=== PATIENT | female | born 1975 | race Caucasian/White ===

== ENCOUNTER 2016-08-12 16:22 | Outpatient (CLI) | payer MEDICAID | END 2016-08-12 16:23 | disposition home or self-care (01) | DX: N95.1 Menopausal and female climacteric states (principal) ==

== ENCOUNTER 2016-09-20 21:19 | Emergency (ER) | payer MEDICAID ==
[2016-09-20] MEDS ORDERED: valACYclovir 500 MG TABLET PO STA (22:58)
[2016-09-20] MEDS ORDERED: IBUPROFEN 600 MG TABLET PO STA (22:59)
[2016-09-20] MEDS ORDERED: valACYclovir 500 MG TABLET PO ONE (23:14)
[2016-09-20] MEDS ORDERED: IBUPROFEN 600 MG TABLET PO ONE (23:14)
== END 2016-09-20 23:16 | disposition home or self-care (01) ==
DX: R21 Rash and other nonspecific skin eruption (principal)
CPT/HCPCS: 99283; A9270

== ENCOUNTER 2017-03-30 13:24 | Outpatient (CLI) | payer MEDICAID ==
[2017-03-30 13:39] LABS: BASOPHILS % (AUTO) 0.7 %; EOSINOPHILS # (AUTO) 0.3 10^3/uL (0.0-0.7); EOSINOPHILS % (AUTO) 3.7 %; HCT - HEMATOCRIT 39.6 % (37.0-47.0); HGB - HEMOGLOBIN 13.5 g/dL (12.0-16.0); LYMPHOCYTES # (AUTO) 2.4 10^3/uL (1.5-3.5); LYMPHOCYTES % (AUTO) 32.4 %; MEAN CORPUSCULAR HEMOGLOBIN 30.6 pg (27.0-31.0); MEAN CORPUSCULAR VOLUME 89.9 fL (81.0-99.0); MEAN PLATELET VOLUME 8.5 fL (7.9-10.8); MONOCYTES # (AUTO) 0.7 10^3/uL (0.0-1.0); NEUTROPHILS # (AUTO) 3.9 10^3/uL (1.5-6.6); NEUTROPHILS % (AUTO) 53.2 %; RED CELL DISTRIBUTION WIDTH 12.2 % (12.0-15.0); UNCORRECTED WHITE BLOOD COUNT 7.3 x10^3/uL; WHITE BLOOD COUNT 7.3 x10^3/uL (4.8-10.8)
== END 2017-03-30 13:25 | disposition home or self-care (01) ==
LOC: LAB 13:24
PROVIDERS: ATTEND Nurse Practitioner Family
DX: K57.32 Diverticulitis of large intestine without perforation or abscess without bleeding (principal)
CPT/HCPCS: 36415; 85025

== ENCOUNTER 2017-11-22 06:15 | Day surgery (SDC) | payer OTHER ==
[2017-11-22] MEDS ORDERED: ceFAZolin 2 GM/50 ML 2 GM/50 ML BAG IV ONE (06:48)
[2017-11-22] MEDS ORDERED: SCOPOLAMINE PATCH TOP ONE (06:48)
[2017-11-22 06:56] LABS: HCG UR QUAL NEGATIVE
[2017-11-22 06:58] VITALS: BP 118/80
[2017-11-22] MEDS ORDERED: LACTATED RINGERS 1,000 ML IV ONE ×5 (07:09→18:00)
[2017-11-22 07:17] LABS: BASOPHILS % (AUTO) 0.6 %; EOSINOPHILS # (AUTO) 0.2 10^3/uL (0.0-0.7); EOSINOPHILS % (AUTO) 3.3 %; HGB - HEMOGLOBIN 12.6 g/dL (12.0-16.0); LYMPHOCYTES # (AUTO) 2.9 10^3/uL (1.5-3.5); LYMPHOCYTES % (AUTO) 42.3 %; MEAN CORPUSCULAR HGB CONC 34.2 g/dL (32.0-36.0); MEAN CORPUSCULAR VOLUME 90.8 fL (81.0-99.0); MEAN PLATELET VOLUME 8.6 fL (7.9-10.8); MONOCYTES # (AUTO) 0.6 10^3/uL (0.0-1.0); MONOCYTES % (AUTO) 8.5 %; NEUTROPHILS # (AUTO) 3.1 10^3/uL (1.5-6.6); NEUTROPHILS % (AUTO) 45.3 %; PLT - PLATELET COUNT 221 10^3/uL (130-450); RED BLOOD COUNT 4.05 10^6/uL (4.20-5.40); RED CELL DISTRIBUTION WIDTH 11.8 % (12.0-15.0); WHITE BLOOD COUNT 6.9 x10^3/uL (4.8-10.8)
[2017-11-22] MEDS ORDERED: BACITRACIN OINT TOP ONE ×2 (07:30→07:56)
[2017-11-22] MEDS ORDERED: BUPIVACAINE 0.25%-EPI 1:200000 PF 30 ML VIAL ONE (07:30)
[2017-11-22] MEDS ORDERED: MINERAL OIL/PETROLAT OPHTH OINT ONE (07:30)
[2017-11-22] MEDS ORDERED: EPINEPHrine 1 MG/ML AMP ONE (07:30)
[2017-11-22] MEDS ORDERED: CHLORHEXIDINE GLUCONATE 15 ML UDC PO ONE (07:34)
[2017-11-22] MEDS ORDERED: OXYMETAZOLINE NASAL SPRAY NAS ONE (07:34)
[2017-11-22] MEDS ORDERED: BACITRACIN 50,000 UNIT VIAL ONE ×2 (07:36→07:41)
[2017-11-22] MEDS ORDERED: SODIUM CHLORIDE 0.9% 10 ML ONE (07:46)
[2017-11-22] MEDS ORDERED: BACITRACIN 50,000 UNIT VIAL IM ONE (09:10)
[2017-11-22] MEDS ORDERED: BUPIVACAINE 0.5%-EPI 1:200000 PF 30 ML VIAL SUBQ ONE ×2 (09:10→16:59)
[2017-11-22] MEDS ORDERED: BUPIVACAINE 0.25%-EPI 1:200000 PF 30 ML VIAL SUBQ ONE (09:10)
[2017-11-22] MEDS ORDERED: BACITRACIN ZINC OINT 15 GM TOP ONE (09:10)
[2017-11-22] MEDS ORDERED: EPINEPHrine 1 MG/ML AMP IVP ONE (09:10)
[2017-11-22] MEDS ORDERED: ONDANSETRON 4 MG/2 ML VIAL IVP ONE (09:30)
[2017-11-22] MEDS ORDERED: LIDOCAINE-MPF 2% 5 ML VIAL IM ONE (09:30)
[2017-11-22] MEDS ORDERED: fentaNYL 250 MCG/5 ML VIAL IVP ONE (09:30)
[2017-11-22] MEDS ORDERED: ESMOLOL 100 MG/10 ML VIAL IVP ONE (09:30)
[2017-11-22] MEDS ORDERED: SODIUM CHLORIDE 0.9% 10 ML VIAL IV ONE (09:30)
[2017-11-22] MEDS ORDERED: SUCCINYLCHOLINE 200 MG/10 ML VIAL IVP ONE (09:30)
[2017-11-22] MEDS ORDERED: MIDAZOLAM 2 MG/2 ML VIAL IVP ONE (09:30)
[2017-11-22] MEDS ORDERED: DEXAMETHASONE 4 MG/ML VIAL IVP ONE (09:30)
[2017-11-22] MEDS ORDERED: ACETAMINOPHEN 1,000 MG/100 ML 100 ML IV ONE (09:30)
[2017-11-22] MEDS ORDERED: LABETALOL 5 MG/1 ML 20 ML MDV IV ONE ×2 (09:30)
[2017-11-22] MEDS ORDERED: PROPOFOL 200 MG/20 ML VIAL IVP ONE (09:30)
[2017-11-22] MEDS ORDERED: BUPIVACAINE 0.5%-EPI 1:200000 PF 30 ML VIAL ONE (12:35)
[2017-11-22] MEDS: HYDROmorphone 1 MG/ML CARPUJECT ONE ×3 (17:32→18:17)
[2017-11-22] MEDS ORDERED: KETOROLAC 30 MG/ML VIAL ONE (18:17)
[2017-11-22] MEDS: fentaNYL 100 MCG/2 ML VIAL ONE ×3 (18:45→19:10)
[2017-11-22] MEDS: HYDROmorphone 0.5 MG/0.5 ML SYRINGE IVP PRN ×3 (20:50→23:46)
[2017-11-22] MEDS ORDERED: clonazePAM 0.5 MG TABLET PO PRN (21:21)
[2017-11-22] MEDS ORDERED: CARBOXYMETHYLCELLULOSE OPHTH DROPS EACHEYE PRN (21:25)
[2017-11-22] MEDS: LACTATED RINGERS 1,000 ML IV SCH (21:55)
[2017-11-22] MEDS ORDERED: AMITRIPTYLINE 10 MG TABLET PO SCH (22:00)
[2017-11-22] MEDS ORDERED: GABAPENTIN 300 MG CAPSULE PO SCH (22:00)
[2017-11-22] MEDS ORDERED: SODIUM CHLORIDE FLUSH 0.9% 10 ML SYRINGE ONE (22:02)
[2017-11-22] MEDS: oxyCOD/ACETAMIN 5 MG/325 MG TABLET PO PRN (22:10)
[2017-11-22] MEDS: CHLORHEXIDINE GLUCONATE 15 ML UDC PO SCH (22:10)
[2017-11-22] MEDS: ONDANSETRON 4 MG/2 ML VIAL IVP PRN (22:10)
[2017-11-22] MEDS ORDERED: LORazepam 2 MG/ML VIAL IVP SCH (22:30)
[2017-11-22] MEDS ORDERED: LORazepam 2 MG/ML VIAL ONE (22:48)
[2017-11-22] MEDS: KETOROLAC 30 MG/ML VIAL IVP PRN (23:46)
[2017-11-23] MEDS: HYDROmorphone 0.5 MG/0.5 ML SYRINGE IVP PRN ×4 (01:04→09:13)
[2017-11-23] MEDS: oxyCOD/ACETAMIN 5 MG/325 MG TABLET PO PRN ×3 (03:48→13:00)
[2017-11-23] MEDS: KETOROLAC 30 MG/ML VIAL IVP PRN ×2 (06:07→11:05)
[2017-11-23] MEDS: buPROPion XL 150 MG TABLET PO SCH ×2 (08:09→09:12)
[2017-11-23] MEDS: CETIRIZINE 10 MG TABLET PO SCH ×2 (08:10→09:12)
[2017-11-23] MEDS: CHLORHEXIDINE GLUCONATE 15 ML UDC PO SCH (08:11)
[2017-11-23] MEDS: LACTATED RINGERS 1,000 ML IV SCH (09:31)
[2017-11-23] MEDS ORDERED: IBUPROFEN 400 MG TABLET PO PRN (10:25)
[2017-11-23] MEDS ORDERED: DEXAMETHASONE 10 MG/ML VIAL IVP SCH (11:00)
[2017-11-23] MEDS ORDERED: AMOX/CLAV 875 MG/125 MG TABLET PO SCH (11:00)
[2017-11-23] MEDS ORDERED: LORazepam 2 MG/ML VIAL IVP SCH (11:00)
[2017-11-23] MEDS: ONDANSETRON 4 MG/2 ML VIAL IVP PRN ×2 (11:05→15:48)
[2017-11-23] MEDS ORDERED: SODIUM CHLORIDE FLUSH 0.9% 10 ML SYRINGE ONE (11:13)
[2017-11-23] MEDS ORDERED: ONDANSETRON ODT 4 MG TABLET TL PRN (14:42)
[2017-11-23] MEDS ORDERED: DOCUSATE SODIUM 100 MG CAPSULE PO SCH (15:00)
[2017-11-23] MEDS: SACCHAROMYCES BOULARDII 250 MG CAPSULE PO SCH ×2 (15:44→15:50)
[2017-11-23] MEDS: HYDROmorphone 2 MG TABLET PO PRN ×2 (15:45→19:03)
[2017-11-23] MEDS ORDERED: LORazepam 0.5 MG TABLET PO PRN (17:00)
--- NOTE | 2017-11-23 17:33 | OPERATIVE REPORT ---
DATE OF SERVICE: 11/22/2017 Physician: Teja Aldrich DDS PREOPERATIVE DIAGNOSIS: 1. Bilateral temporomandibular joint internal derangement with severe bony architecture changes on the right side. 2. Osteoarthritis of the bilateral temporomandibular joints, ICD-10 code M26.69. 3. 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 4. Arthralgia of the bilateral temporomandibular joints, ICD-10 code M26.623. 5. 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 6. Open bite on the left, ICD-10 code M26.64. This diagnosis is secondary to osteoarthritis of the right temporomandibular joint. 7. History of trauma to the mandible. PROCEDURE: 1. Left temporomandibular joint diskectomy via preauricular incision. 2. Right temporomandibular joint total joint arthroplasty with prosthetic joint replacement. 3. Fat graft from the abdomen to the bilateral temporomandibular joints. POSTOPERATIVE DIAGNOSIS: 1. Bilateral temporomandibular joint internal derangement with severe bony architecture changes on the right side. 2. Osteoarthritis of the bilateral temporomandibular joints, ICD-10 code M26.69. 3. 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 4. Arthralgia of the bilateral temporomandibular joints, ICD-10 code M26.623. 5. 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 6. Open bite on the left, ICD-10 code M26.64. This diagnosis is secondary to osteoarthritis of the right temporomandibular joint. 7. History of trauma to the mandible. SURGEON: Teja Aldrich DDS ASSISTANTS: Theresa Del Rio, Sabine Mcintosh, and Peri Davis. ANESTHESIA: Johnson Nicholson CRNA. IMPLANTS: All implants were Biomet implants. 1. Small right mandibular fossa. 2. A 50 mm standard right mandibular condylar implant. 3. The X-drive fossa screws, 2.0 x 9 mm x1 and 2.0 x 11 mm x4. 4. The HT X-drive mandibular screws, 2.7 x 8 mm x3 and 2.7 x 10 mm x2. COMPLICATIONS: None. ESTIMATED BLOOD LOSS: 600 mL. URINE OUTPUT: 900 mL. SPECIMENS REMOVED: None. DRAINS, PACKS, CATHETERS: None. INDICATIONS FOR PROCEDURE: Nellie is a 42-year-old female who has a history of multiple conservative treatment and for pain of the bilateral temporomandibular joint. She noted that in the last 6 months she began to have shifting of her bite and the pain actually went away on the right hand side and became severe on the left. She also noticed decrease in mobility in the right temporomandibular joint and the shifting bite had caused an open bite on the left with occasional severe pain on the right. Radiographic and clinical examination consistent with severe vertical height loss secondary to osteoarthritis of the right temporomandibular joint. It was decided that total joint arthroplasty of the right temporomandibular joint with a Biomet prosthetic implant was indicated with discectomy on the left. The risks, benefits and alternatives of this plan were discussed including pain, swelling, bleeding, infection, scarring, paralysis of the muscles of the face, numbness of the lips, chin or tongue, severe bleeding with need for transfusion and/or prolonged hospitalization need for further surgeries, failure of the hardware, malocclusion and ectopic bone formation. Adequate time was given to answer all questions and informed consent obtained. DESCRIPTION OF PROCEDURE: The patient was brought to the main operating room and placed in the supine position on the operating table. General anesthesia was induced by the anesthesia team and the airway was secured with a nasal endotracheal tube. The tube was secured to the septum with a transseptal suture. All pressure points were padded and checked. The patient was prepped and draped in standard sterile fashion for bilateral open joint temporomandibular joint surgery. It should be noted, however, that prior to the formal prep and drape, we began with the fat graft harvest from the abdomen. A formal timeout was executed. Attention was directed to the abdomen. The abdomen was prepped and draped in standard fashion for harvest of fat via small incision. Local anesthesia was achieved with 3 mL of 0.25% Marcaine with 1:200,000 epinephrine. At 4 cm to the right of the umbilicus a 2.5 cm incision was made with a #10 blade. Sharp dissection down through the skin into the Camper's fascia was completed. Once entering the Camper's fascia, about 10 mL of fat were harvested, placed in a specimen container and saline. The site was then irrigated. Hemostasis was assured. The deep layers were closed with 4-0 Vicryl suture and the superficial layers were closed with 5-0 Prolene suture. The wound was dressed. At this point, attention was directed intraorally. A throat pack was placed. The patient's mouth was cleansed and rinsed free of debris. A 24-gauge wire was fashioned to the Marcella loops and 8 Marcella loops were placed 4 the mandible and 4 in the maxilla in order to be able to place the patient into intermaxillary fixation as needed later in the case. The patient was then prepped and draped in the standard sterile fashion for arthroplasty of the bilateral temporomandibular joint. Attention was first directed to the left temporomandibular joint. This was done because the diskectomy would undoubtedly change the patient's occlusal relationship and so this was decided to be carried out first prior to the prosthetic placement. Epinephrine 1:50,000 was used for hemostasis, 3 mL were injected. A standard preauricular incision was drawn and made with a #15 blade. Dissection in a blunt fashion was carried out down to the temporomandibular joint capsule the whole time the nerve stimulator was used. At no time was any stimulation of the frontal branch of the facial nerve appreciated and there was a significant amount of blood vessels right in the field. All bleeding was managed with hand ties and with bipolar cautery. Once the capsule was encountered, an incision was made through the capsule. The capsule and its contents were very inflamed and bled significantly making the surgery progress slowly because of the need to continually stop and control bleeding. Inside the capsule, no recognizable disk was found. The mandible was manipulated and a significant amount of inflamed bleeding, retrodiscal tissue was found and removed and also a significant amount of scar tissue was removed from the normal location of the disk. Once this tissue was removed, the site was irrigated copiously. The deep layers were closed with 4-0 Vicryl suture and the superficial layers were closed with 5-0 Prolene suture. Attention was then directed to the right preauricular area. A right submandibular incision and a right preauricular incision were drawn and then carried out with a #15 blade. First, the right submandibular incision was performed. The dissection was performed sharply down to the platysma and then at the platysma blunt dissection began, testing with a nerve stimulator along the way. Surprisingly, the marginal mandibular branch of the facial nerve was found to be swooping very inferiorly below the inferior border of the mandible. The unusual position made the dissection difficult, but the marginal mandibular branch could easily be identified by visual inspection and by location with the nerve stimulator and it was safely retracted out of the way. The dissection was carried out down through the submandibular salivary gland safely reflecting the facial artery and vein out of the way and not sacrificing the vessel. The pterygomasseteric sling was encountered and it was sharply bisected. The masseter was then reflected off of the lateral surface of the mandible and the site was packed with Afrin-soaked cottonoids. Attention was turned to the preauricular incision. The incision was made with a #15 blade. Sharp and blunt dissection was used at the superior aspect of the incision down to the temporalis muscle. The plane in the temporalis muscle was then followed down to the zygomatic arch. The periosteum of the arch was identified. It was stimulated with a nerve stimulator and again in this location, no movement of the eyebrow was noted. The dissection continued down to the capsule. A moderate amount of bleeding was noted, but the bleeding again as on the other side was controlled with bipolar and with hand ties. The capsule was entered and the condylar head and the fossa were identified. The condylar head was found to be extremely shortened by the osteoarthritis. In fact, it was so short and that the coronoid notch was almost articulating with the eminence of the fossa. Because of this, not a whole lot of condylar head had to be resected, but the scarred and disease portion of the condylar head that did remain was resected as well as a bright white piece of tissue that was anterior to the head. This could have been the disk or it could have been some calcified scar tissue or a piece of bone from the previous fracture. It was difficult to tell. Once all the scar tissue was removed from the fossa and the condylar head and the bleeding was controlled, also it should be noted that Surgifoam was used in this location to control bleeding as well. A reciprocating rasp was used to smooth down the bony surface of the mandible and also to smooth down the surface of the fossa and the eminence to make it parallel to the [place] horizontal plane. A trial fossa was then placed into the site and good clearance of the mandible from this fossa was noted. A permanent fossa implant was then placed and held in place with two screws. The patient was then placed into intermaxillary fixation with care being taken not to contaminate the field of the right temporomandibular joint. Scrub was then broken and I rescrubbed back in to continue on with the surgery of the right temporomandibular joint. The condylar trial portion was then used. Because of the nice medial location of the mandible, a brief attempt at placing an offset trial portion was used; however, this was found to ride on the lateral aspect of the fossa and it was deemed not as good as just the standard angulation of the condyle. The 50 mm was decided upon and it was held in place with two screws. Now that all the implantable components were rigidly in place, again, the patient's intermaxillary fixation was released and her occlusion was noted to be very stable and repeatable. This is very good and again scrub was broken and I once again rescrubbed and then I came back into the case. Fixation was completed of the fossa end of the condylar component as described above in the components implanted. Once all implants were completed, the entire surgical area was irrigated with copious amounts of sterile saline that was mixed with bacitracin. Fat graft was then placed around the implant to prevent heterotopic ossification. I forgot to mention previously, but it should also be noted that a fat graft was also placed into the left temporomandibular joint after the diskectomy was completed. Once the fat graft was completed on the right, the deep layers were closed with 4-0 Vicryl suture, taking care to make a multiple layered closure and the superficial layers were closed with 5-0 Prolene suture. The patient's face was cleansed. The throat pack was removed. The intermaxillary fixation was released. The septal suture was removed. The eyes were rinsed with BSS. Care of the patient was returned to the anesthesia team for uneventful emergence room anesthesia. She was transferred to the PACU in stable condition. TD: 11/23/2017 13:16
== END 2017-11-23 19:32 | disposition home or self-care (01) ==
LOC: SDS 06:15 → MS2 17:05 → SDS 11-23 19:32
PROVIDERS: ATTEND Dentist Oral and Maxillofacial Surgery
PROC: 0RRC0JZ Replacement of Right Temporomandibular Joint with Synthetic Substitute, Open Approach (ICD-10-PCS; 2017-11-22)
PROC: 0JB80ZZ Excision of Abdomen Subcutaneous Tissue and Fascia, Open Approach (ICD-10-PCS; 2017-11-22)
PROC: 0RB Upper Joints, Excision (ICD-10-PCS; principal; 2017-11-22 07:30)
DX: M26.69 Other specified disorders of temporomandibular joint (principal); M26.611 Adhesions and ankylosis of right temporomandibular joint; M26.633 Articular disc disorder of bilateral temporomandibular joint; M26.623 Arthralgia of bilateral temporomandibular joint; M26.4 Malocclusion, unspecified; G47.63 Sleep related bruxism; J45.909 Unspecified asthma, uncomplicated; F32.9 Major depressive disorder, single episode, unspecified; F41.9 Anxiety disorder, unspecified
CPT/HCPCS: 20926; 21060; 21243; 81025; 85025; A9270; C1713; J0131; J0330; J0690; J1170; J2060; J3010; J3490; J7120

== ENCOUNTER 2018-04-20 18:17 | Outpatient (CLI) | payer OTHER ==
--- NOTE | 2018-04-23 09:26 | Ultrasound Report ---
Reason: BONE SOFT TISSUE SKIN NEOPLASM UNSPEC BEHAVIOR Procedure Date: 04/20/2018 Accession Number: [id number] / [id number] Procedure: US - Head or Neck Soft Tissue CPT Code: FULL RESULT: EXAM: ULTRASOUND CHEST LIMITED EXAM DATE: 04/20/2018 06:59 PM. CLINICAL HISTORY: BONE SOFT TISSUE SKIN NEOPLASM UNSPEC BEHAVIOR. COMPARISON: None. TECHNIQUE: Real-time sonographic imaging was performed by the metal furniture panel coverer utilizing color-flow. Multiple sales donor recruitment representative static images were saved for review. Region of interest: Left back in the region of the clinical finding. FINDINGS: There is an apparent 4.2 x 3.7 x 0.9 cm mass-like region at the left mid back with echogenicity similar to surrounding musculature. IMPRESSION: There is an apparent 4.2 x 3.7 x 0.9 cm mass-like region at the left mid back with echogenicity similar to surrounding musculature, indeterminate. MR could be considered for further evaluation. RADIA
== END 2018-04-20 18:18 | disposition home or self-care (01) ==
LOC: DI 18:17
PROVIDERS: ATTEND Family Medicine
DX: D49.2 Neoplasm of unspecified behavior of bone, soft tissue, and skin (principal); R22.2 Localized swelling, mass and lump, trunk
CPT/HCPCS: 76536

== ENCOUNTER 2018-05-17 17:45 | Outpatient (CLI) | payer OTHER ==
--- NOTE | 2018-05-18 18:18 | MRI Report ---
Reason: BONE SOFT TISSUE AND SKIN NEOPLASM UNSPEC BEHAVIOR Procedure Date: 05/17/2018 Accession Number: [id number] / [id number] Procedure: MRI - Thoracic Spine W/O CPT Code: FULL RESULT: EXAM: MRI THORACIC SPINE WITHOUT CONTRAST EXAM DATE: 05/17/2018 07:00 PM. CLINICAL HISTORY: Bones/soft tissue/skin neoplasm of uncertain behavior. COMPARISONS: Ultrasound 04/20/2018. TECHNIQUE: Multiplanar, multisequence T1-weighted and fluid-sensitive sequences of the thoracic spine from C7 to L1 without contrast. Other: None. FINDINGS: Spinal Canal: No signal abnormality in the visualized spinal cord. Alignment: No scoliosis or spondylolisthesis. Bone Marrow: No gross fractures or bone lesion. No bone marrow replacement. Disk Levels/Facets: C7-T1: Unremarkable. T1-T2: Unremarkable. T2-T3: Unremarkable. T3-T4: Unremarkable. T4-T5: Unremarkable. T5-T6: Unremarkable. T6-T7: Unremarkable. T7-T8: Unremarkable. T8-T9: Unremarkable. T9-T10: Unremarkable. T10-T11: Unremarkable. T11-T12: Unremarkable. T12-L1: Unremarkable. Musculature: Normal. No edema or fatty atrophy. Other: The visualized lungs, mediastinum, and abdominal cavity are unremarkable. Within the subcutaneous tissues of the upper thoracic region centrally, there is an oval-shaped structure within the subcutaneous tissues midline that measures 1.8 x 3.3 x 5.9 cm. This has signal intensity of fat on all sequences and is consistent with a benign lipoma. IMPRESSION: 5.9 cm benign subcutaneous lipoma posterior to the central upper thoracic spine. RADIA
== END 2018-05-17 17:46 | disposition home or self-care (01) ==
LOC: DI 17:45
PROVIDERS: ATTEND Family Medicine
DX: D17.1 Benign lipomatous neoplasm of skin and subcutaneous tissue of trunk (principal)
CPT/HCPCS: 72146

== ENCOUNTER 2018-08-06 10:50 | Outpatient (CLI) | payer OTHER ==
[2018-08-06 19:00] LABS: BASOPHILS % (AUTO) 0.4 %; EOSINOPHILS # (AUTO) 0.2 10^3/uL (0.0-0.7); HGB - HEMOGLOBIN 13.2 g/dL (12.0-16.0); LYMPHOCYTES % (AUTO) 27.9 %; MEAN CORPUSCULAR HEMOGLOBIN 30.4 pg (27.0-31.0); MEAN CORPUSCULAR HGB CONC 33.5 g/dL (32.0-36.0); MEAN CORPUSCULAR VOLUME 90.8 fL (81.0-99.0); MONOCYTES # (AUTO) 0.7 10^3/uL (0.0-1.0); MONOCYTES % (AUTO) 6.8 %; NEUTROPHILS # (AUTO) 6.8 10^3/uL (1.5-6.6); NEUTROPHILS % (AUTO) 62.9 %; PLT - PLATELET COUNT 249 10^3/uL (130-450); RED BLOOD COUNT 4.34 10^6/uL (4.20-5.40); RED CELL DISTRIBUTION WIDTH 12.8 % (12.0-15.0); WHITE BLOOD COUNT 10.9 x10^3/uL (4.8-10.8)
[2018-08-06 19:23] LABS: ALBUMIN 3.3 g/dL (3.2-5.5); ALBUMIN/GLOBULIN RATIO 1.1 (1.0-2.2); ALKALINE PHOSPHATASE 65 IU/L (42-121); ALT ALANINE AMINOTRANSFERASE 19 IU/L (10-60); AST ASPARTATE AMINOTRANSFERASE 25 IU/L (10-42); BILIRUBIN,TOTAL 0.5 mg/dL (0.2-1.0); BUN - BLOOD UREA NITROGEN 13 mg/dL (6-20); CALCIUM 8.7 mg/dL (8.5-10.3); CARBON DIOXIDE - CO2 23 mmol/L (21-32); CHLORIDE 108 mmol/L (101-111); CREATININE 0.8 mg/dL (0.4-1.0); GFR - MDRD 79 (>89); GLUCOSE 84 mg/dL (70-100); SODIUM 139 mmol/L (135-145); TOTAL PROTEIN 6.4 g/dL (6.7-8.2)
== END 2018-08-06 10:51 | disposition home or self-care (01) ==
LOC: LAB.WCP 10:50
PROVIDERS: ATTEND Nurse Practitioner
DX: Z13.228 Encounter for screening for other metabolic disorders (principal); R53.83 Other fatigue
CPT/HCPCS: 36415; 80050

== ENCOUNTER 2018-10-20 11:59 | Emergency (ER) | payer OTHER ==
[2018-10-20] MEDS ORDERED: predniSONE 20 MG TABLET PO STA (12:27)
[2018-10-20] MEDS ORDERED: IPRATROPIUM/ALBUTEROL 3 ML NEB INH STA (12:27)
--- NOTE | 2018-10-20 12:30 | ED Physician Documentation ---
PD HPI DYSPNEA - Stated complaint Stated Complaint: SOA,COUGH - Chief complaint Chief Complaint: Resp - History obtained from History obtained from: Patient, Family - History of Present Illness Timing - onset: Other (3-year-old woman with mild intermittent asthma. She is been sick for about 2 weeks with cough. It got better after starting steroids and doxycycline 6 days ago. She still on the doxycycline, but the steroids have been stopped and got worse again last night with more shortness of breath especially at night and increased use of her rescue inhaler. She denies fevers. No recent travel or pedal edema or calf pain.) Review of Systems Constitutional: denies: Fever, Chills Cardiac: denies: Chest pain / pressure, Palpitations Respiratory: denies: Dyspnea, Cough GI: denies: Abdominal Pain PD PAST MEDICAL HISTORY - Past Medical History Past Medical History: Yes Cardiovascular: None Respiratory: Asthma GI: Ulcerative colitis AIRCRAFT ENGINEER: Endometriosis : None HEENT: Chronic vision loss Psych: Depression, Anxiety Musculoskeletal: None - Past Surgical History Past Surgical History: Yes General: Colonoscopy /AIRCRAFT ENGINEER: Endometrial ablation, Oophrectomy, Other HEENT: Other - Present Medications Home Medications: Ambulatory Orders Medication Instructions Recorded Confirmed Cetirizine HCl [Zyrtec] 10 mg PO DAILY PRN 03/16/16 11/21/17 clonazePAM [KlonoPIN] 0.5 mg PO BID PRN 03/16/16 11/22/17 Albuterol Sulfate [Proair Hfa 1 - 2 puffs INH Q4H PRN 11/21/17 11/22/17 Inhaler] Amitriptyline [Elavil] 10 mg PO HS 11/21/17 11/22/17 Bupropion HCl [Wellbutrin Xl] 300 mg PO DAILY 11/21/17 11/21/17 Gabapentin 300 mg PO DAILY PM 11/21/17 11/22/17 Sulfasalazine [Azulfidine] 500 mg PO BID 11/21/17 11/22/17 Albuterol Sulf [Ventolin Hfa 1 - 2 puffs INH Q4HR PRN #1 inhaler 10/20/18 Inhaler] predniSONE [Deltasone] 20 mg PO [id number] #21 tab 10/20/18 - Allergies Allergies/Adverse Reactions: Allergies Allergy/AdvReac Type Severity Reaction Status Date / Time No Known Drug Allergies Allergy Verified 11/22/17 07:06 - Social History Does the pt smoke?: No Smoking Status: Never smoker Does the pt drink ETOH?: No Does the pt have substance abuse?: No - Immunizations Immunizations are current?: Yes - POLST Patient has POLST: No PD ED PE NORMAL - Vitals Vital signs reviewed: Yes - General General: Alert and oriented X 3, No acute distress - Neck Neck: Supple, no meningeal sign, No bony TTP - Cardiac Cardiac: RRR, No murmur - Respiratory Respiratory: No respiratory distress, Clear bilaterally, Other (Excellent air motion with only faint expiratory wheezing) - Abdomen Abdomen: Non tender - Derm Derm: No rash - Extremities Extremities: No edema, No calf tenderness / cord Results - Vitals Vitals: Vital Signs - 24 hr 10/20/18 12:07 Temperature 36.6 C Heart Rate 86 Respiratory 16 Rate Blood Pressure 130/80 O2 Saturation 97 Oxygen O2 Source Room air Departure - Departure Disposition: 01 Home, Self Care Clinical Impression: Asthma Qualifiers: Asthma severity: mild Asthma persistence: intermittent Asthma complication type: with acute exacerbation Qualified Code(s): J45.21 - Mild intermittent asthma with (acute) exacerbation Condition: Good Record reviewed to determine appropriate education?: Yes Instructions: Asthma Dc Prescriptions: Albuterol Sulf [Ventolin Hfa Inhaler] 1 - 2 puffs INH Q4HR PRN #1 inhaler PRN Reason: Shortness Of Air/Wheezing predniSONE [Deltasone] 20 mg PO [id number] #21 tab Comments: Return for new or worsening symptoms, follow-up with your doctor in about 3 days if not improving.
[2018-10-20 12:55] VITALS: BP 122/76
== END 2018-10-20 12:55 | disposition home or self-care (01) ==
LOC: ED 11:59
DX: J45.21 Mild intermittent asthma with (acute) exacerbation (principal)
CPT/HCPCS: 94640; 94664; 99283; J7512

== ENCOUNTER 2018-11-14 16:40 | Emergency (ER) | payer OTHER ==
--- NOTE | 2018-11-14 17:51 | ED Physician Documentation ---
PD HPI SKIN - Stated complaint Stated Complaint: RT LEG WOUND/OOZE - Chief complaint Chief Complaint: General - History obtained from History obtained from: Patient - History of Present Illness Timing - onset: How many days ago (2-3) Timing - duration: Days (2-3) Timing - details: Gradual onset Location: RLE (anterolateral lower leg.) Quality / character: Itchy, Painful, Vesicular (today) Associated symptoms: Myalgias. No: Fever, Joint pain, N/V/D Contributing factors: Recent illness (She had bronchitis with an asthma exacerbation about 3 weeks ago and was on a tapering course of steroids which finished 4 to 5 days ago.). No: Exposed to Poison renzo/oak, Insect bite /sting Similar symptoms before: Has not had sx before Recently seen: Not recently seen Review of Systems Constitutional: reports: Myalgias. 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: Endometriosis : None HEENT: Chronic vision loss Psych: Depression, Anxiety Musculoskeletal: None - Past Surgical History Past Surgical History: Yes General: Colonoscopy /ENGINEERING GROUP MANAGER: Endometrial ablation, Oophrectomy, Other HEENT: Other - Present Medications Home Medications: Ambulatory Orders Medication Instructions Recorded Confirmed Cetirizine HCl [Zyrtec] 10 mg PO DAILY PRN 03/16/16 11/21/17 clonazePAM [KlonoPIN] 0.5 mg PO BID PRN 03/16/16 11/22/17 Albuterol Sulfate [Proair Hfa 1 - 2 puffs INH Q4H PRN 11/21/17 11/22/17 Inhaler] Amitriptyline [Elavil] 10 mg PO HS 11/21/17 11/22/17 Bupropion HCl [Wellbutrin Xl] 300 mg PO DAILY 11/21/17 11/21/17 RX: Gabapentin 300 mg PO DAILY PM 11/21/17 11/22/17 Sulfasalazine [Azulfidine] 500 mg PO BID 11/21/17 11/22/17 RX: Albuterol Sulf [Ventolin Hfa 1 - 2 puffs INH Q4HR PRN #1 inhaler 10/20/18 Inhaler] RX: predniSONE [Deltasone] 20 mg PO [id number] #21 tab 10/20/18 RX: Valacyclovir HCl [Valacyclovir] 1,000 mg PO TID #20 tablet 11/14/18 dexAMETHasone [Decadron] 4 mg PO DAILY #5 tablet 11/14/18 - Allergies Allergies/Adverse Reactions: Allergies Allergy/AdvReac Type Severity Reaction Status Date / Time No Known Drug Allergies Allergy Verified 11/14/18 16:50 - Social History Does the pt smoke?: No Smoking Status: Never smoker Does the pt drink ETOH?: No Does the pt have substance abuse?: No - Immunizations Immunizations are current?: Yes - POLST Patient has POLST: No PD ED PE NORMAL - Vitals Vital signs reviewed: Yes - General General: Alert and oriented X 3, No acute distress, Well developed/nourished - Back Back: No spinal TTP - Derm Derm: Normal color, Warm and dry, Other (Right lower extremity on the anterolateral leg down to the top of the foot near the big toe shows a patchy red based rash with blisters in clusters that appears consistent with shingles in appearance and pattern. There is no purulence noted. There is no redness aside from the cluster blister patches. The back of the calf is nontender. Her back is nontender.) Results - Vitals Vitals: Vital Signs - 24 hr 11/14/18 11/14/18 16:45 18:42 Temperature 36.9 C 37.0 C Heart Rate 100 82 Respiratory 14 17 Rate Blood Pressure 149/81 H 123/81 H O2 Saturation 99 100 Oxygen O2 Source Room air PD MEDICAL DECISION MAKING - ED course Complexity details: considered differential (She has had some tenderness and itching on the right lower leg for 2 to 3 days and today noted a blistery rash in the area consistent with shingles.), d/w patient Departure - Departure Disposition: 01 Home, Self Care Clinical Impression: Shingles outbreak Qualifiers: Herpes zoster complications: without complications Qualified Code(s): B02.9 - Zoster without complications Condition: Stable Record reviewed to determine appropriate education?: Yes Instructions: ED Shingles Follow-Up: Shelley Ordñoez DO [Primary Care Provider] - Prescriptions: dexAMETHasone [Decadron] 4 mg PO DAILY #5 tablet RX: Valacyclovir HCl [Valacyclovir] 1,000 mg PO TID #20 tablet Comments: This looks like a shingles rash. Keep the area clean and use soap and water once or twice daily to prevent secondary infection. You can use topical ointment just for the wound of it. For the shingles itself, use valacyclovir 3 times a day for a week. Also Decadron steroid anti-inflammatory daily as directed. Tylenol or ibuprofen if needed for pains. This should progress likely over a few days and then take about a week or so to improve. Recheck if signs of secondary infection such as fussiness increasing redness etc. Discharge Date/Time: 11/14/18 19:06
[2018-11-14] MEDS ORDERED: ACYCLOVIR 200 MG CAPSULE PO STA (18:26)
[2018-11-14] MEDS ORDERED: DEXAMETHASONE 10 MG/ML VIAL PO STA (18:26)
[2018-11-14] MEDS ORDERED: CHERRY SYRUP 10 ML UDC PO ONE (18:26)
[2018-11-14 18:42] VITALS: BP 123/81
== END 2018-11-14 19:06 | disposition home or self-care (01) ==
LOC: ED 16:40
DX: B02.9 Zoster without complications (principal)
CPT/HCPCS: 99283; A9270

== ENCOUNTER 2018-11-22 18:08 | Outpatient (CLI) | payer OTHER ==
[2018-11-22 18:25] LABS: BASOPHILS % (AUTO) 0.5 %; EOSINOPHILS % (AUTO) 1.9 %; HGB - HEMOGLOBIN 13.6 g/dL (12.0-16.0); LYMPHOCYTES % (AUTO) 36.7 %; MEAN CORPUSCULAR HEMOGLOBIN 31.4 pg (27.0-31.0); MEAN CORPUSCULAR HGB CONC 35.2 g/dL (32.0-36.0); MEAN CORPUSCULAR VOLUME 89.2 fL (81.0-99.0); MEAN PLATELET VOLUME 7.8 fL (7.9-10.8); MONOCYTES % (AUTO) 8.1 %; NEUTROPHILS % (AUTO) 52.8 %; PLT - PLATELET COUNT 303 10^3/uL (130-450); RED BLOOD COUNT 4.33 10^6/uL (4.20-5.40); RED CELL DISTRIBUTION WIDTH 12.5 % (12.0-15.0); WHITE BLOOD COUNT 8.4 x10^3/uL (4.8-10.8)
[2018-11-22 18:33] LABS: ALBUMIN 3.6 g/dL (3.2-5.5); ALBUMIN/GLOBULIN RATIO 1.2 (1.0-2.2); BILIRUBIN,TOTAL 0.2 mg/dL (0.2-1.0); CREATININE 0.7 mg/dL (0.4-1.0); TOTAL PROTEIN 6.5 g/dL (6.7-8.2)
[2018-11-22 19:00] LABS: ABNORMAL LYMPHS % (MANUAL) 0 %
[2018-11-22 19:31] LABS: BAND NEUTROPHILS % (MANUAL) 1 %; EOSINOPHILS # (MANUAL) 0.1 10^3/uL (0-0.7); LYMPHOCYTES # (MANUAL) 3.5 10^3/uL (1.5-3.5); LYMPHOCYTES % (MANUAL) 42 %; MONOCYTES # (MANUAL) 0.6 10^3/uL (0.0-1.0); MYELOCYTES % (MANUAL) 2 %; NEUTROPHILS % (MANUAL) 47 %
[2018-11-22 19:32] LABS: DIFFERENTIAL COMMENT MANUAL DIFFERENTIAL; PLATELET ESTIMATE, MANUAL NORMAL (130-450,000) (NORMAL); PLATELET MORPHOLOGY NORMAL APPEARANCE (NORMAL); RBC MORPHOLOGY (MULTIPLE) NORMAL APPEARANCE (NORMAL)
[2018-11-26 19:02] LABS: ANA SCREEN POSITIVE (NEGATIVE)
== END 2018-11-22 18:09 | disposition home or self-care (01) ==
LOC: LAB 18:08
PROVIDERS: ATTEND Physician Assistant
DX: L29.8 Other pruritus (principal)
CPT/HCPCS: 36415; 80053; 85025; 86038

== ENCOUNTER 2018-12-10 08:00 | Outpatient (CLI) | payer OTHER ==
[2018-12-10 13:41] LABS: BILIRUBIN,URINE NEGATIVE (NEGATIVE); GLUCOSE, URINE (UA) NEGATIVE (NEGATIVE); KETONES,URINE (UA) NEGATIVE (NEGATIVE); LEUKOCYTE ESTERASE, URINE NEGATIVE (NEGATIVE); NITRITE,URINE NEGATIVE (NEGATIVE); OCCULT BLOOD,URINE NEGATIVE (NEGATIVE); PROTEIN,URINE NEGATIVE (NEGATIVE); UROBILINOGEN,URINE 0.2 (NORMAL) E.U./dL (NORMAL)
[2018-12-10 13:43] LABS: CLARITY,URINE CLEAR (CLEAR)
[2018-12-12 19:42] LABS: ANA SCREEN POSITIVE (NEGATIVE)
== END 2018-12-10 23:59 | disposition home or self-care (01) ==
LOC: LAB 08:00
PROVIDERS: ATTEND Dermatology
DX: M31.9 Necrotizing vasculopathy, unspecified (principal)
CPT/HCPCS: 36415; 81001; 81003; 81241; 81599; 85300; 85303; 85651; 86038; 86146; 86147; 86148

== ENCOUNTER 2018-12-11 13:32 | Outpatient (CLI) | payer OTHER | END 2018-12-11 13:33 | disposition home or self-care (01) | LOC: LAB 13:32 | PROVIDERS: ATTEND Dermatology | DX: M31.9 Necrotizing vasculopathy, unspecified (principal) | CPT/HCPCS: 81599; 82595 ==

== ENCOUNTER 2019-01-18 12:10 | Emergency (ER) | payer OTHER ==
[2019-01-18 12:20] VITALS: BP 126/76
[2019-01-18 13:06] LABS: BILIRUBIN,URINE NEGATIVE (NEGATIVE); GLUCOSE, URINE (UA) NEGATIVE (NEGATIVE); KETONES,URINE (UA) NEGATIVE (NEGATIVE); LEUKOCYTE ESTERASE, URINE TRACE (NEGATIVE); NITRITE,URINE NEGATIVE (NEGATIVE); OCCULT BLOOD,URINE NEGATIVE (NEGATIVE); PROTEIN,URINE NEGATIVE (NEGATIVE); UROBILINOGEN,URINE 0.2 (NORMAL) E.U./dL (NORMAL)
[2019-01-18 13:09] LABS: CLARITY,URINE CLEAR (CLEAR); HCG UR QUAL NEGATIVE
[2019-01-18 13:18] LABS: BACTERIA,URINE Rare /HPF (None Seen); RBC,URINE None Seen /HPF (0-5); SQUAMOUS EPITHELIAL CELL,UR MOD Squamous (<= Few)
[2019-01-18 13:38] LABS: BASOPHILS % (AUTO) 0.4 %; EOSINOPHILS # (AUTO) 0.1 10^3/uL (0.0-0.7); EOSINOPHILS % (AUTO) 1.7 %; HGB - HEMOGLOBIN 13.3 g/dL (12.0-16.0); LYMPHOCYTES # (AUTO) 2.1 10^3/uL (1.5-3.5); LYMPHOCYTES % (AUTO) 28.2 %; MEAN CORPUSCULAR HEMOGLOBIN 30.8 pg (27.0-31.0); MEAN CORPUSCULAR HGB CONC 33.3 g/dL (32.0-36.0); MEAN CORPUSCULAR VOLUME 92.6 fL (81.0-99.0); MONOCYTES # (AUTO) 0.5 10^3/uL (0.0-1.0); NEUTROPHILS # (AUTO) 4.8 10^3/uL (1.5-6.6); NEUTROPHILS % (AUTO) 63.4 %; PLT - PLATELET COUNT 299 10^3/uL (130-450); RED BLOOD COUNT 4.32 10^6/uL (4.20-5.40); RED CELL DISTRIBUTION WIDTH 11.9 % (12.0-15.0); WHITE BLOOD COUNT 7.5 x10^3/uL (4.8-10.8)
[2019-01-18 13:55] LABS: ALBUMIN 3.6 g/dL (3.2-5.5); ALBUMIN/GLOBULIN RATIO 1.2 (1.0-2.2); BILIRUBIN,TOTAL 0.6 mg/dL (0.2-1.0); CREATININE 0.8 mg/dL (0.4-1.0); TOTAL PROTEIN 6.6 g/dL (6.7-8.2)
--- NOTE | 2019-01-18 15:11 | ED Physician Documentation ---
PD HPI ABD PAIN - Stated complaint Stated Complaint: ABD PX - Chief complaint Chief Complaint: Abd Pain - History obtained from History obtained from: Patient - History of Present Illness Timing - onset: How many days ago (4) Timing - duration: Days (4) Timing - details: Gradual onset, Still present Quality: Cramping, Aching, Sharp (occasionally), Pain Location: LLQ Radiation: No: Lower back, Left flank Improved by: No: Eating Worsened by: No: Eating Associated symptoms: Fever (subjective yesterday), Nausea, Diarrhea. No: Vomiting, Constipation, Hematochezia, Dysuria Similar symptoms before: Diagnosis (diverticulitis and ulcerative colitis in the past, with similar symptoms.) Review of Systems Constitutional: reports: Fever. denies: Myalgias Nose: denies: Rhinorrhea / runny nose, Congestion Throat: denies: Sore throat Respiratory: denies: Cough GI: reports: Abdominal Pain, Nausea, Diarrhea. 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 : None HEENT: Chronic vision loss Psych: Depression, Anxiety Musculoskeletal: None - Past Surgical History Past Surgical History: Yes General: Colonoscopy /BALING PRESS OPERATOR: Endometrial ablation, Oophrectomy, Other HEENT: Other - Present Medications Home Medications: Ambulatory Orders Medication Instructions Recorded Confirmed Cetirizine HCl [Zyrtec] 10 mg PO DAILY PRN 03/16/16 11/21/17 clonazePAM [KlonoPIN] 0.5 mg PO BID PRN 03/16/16 11/22/17 Albuterol Sulfate [Proair Hfa 1 - 2 puffs INH Q4H PRN 11/21/17 11/22/17 Inhaler] Amitriptyline [Elavil] 10 mg PO HS 11/21/17 11/22/17 Bupropion HCl [Wellbutrin Xl] 300 mg PO DAILY 11/21/17 11/21/17 Gabapentin 300 mg PO DAILY PM 11/21/17 11/22/17 Sulfasalazine [Azulfidine] 500 mg PO BID 11/21/17 11/22/17 Albuterol Sulf [Ventolin Hfa 1 - 2 puffs INH Q4HR PRN #1 inhaler 10/20/18 Inhaler] predniSONE [Deltasone] 20 mg PO [id number] #21 tab 10/20/18 Valacyclovir HCl [Valacyclovir] 1,000 mg PO TID #20 tablet 11/14/18 dexAMETHasone [Decadron] 4 mg PO DAILY #5 tablet 11/14/18 Cephalexin [Keflex] 500 mg PO TID #21 capsule 01/18/19 Hydrocodone/Acetaminophen [[place] 1 each PO Q6H PRN #15 tablet 01/18/19 5-325 Tablet] Metronidazole [Flagyl] 500 mg PO BID #15 tablet 01/18/19 Ondansetron Odt [Zofran] 4 mg TL Q6H PRN #20 tablet 01/18/19 dexAMETHasone [Decadron] 4 mg PO DAILY #7 tablet 01/18/19 - Allergies Allergies/Adverse Reactions: Allergies Allergy/AdvReac Type Severity Reaction Status Date / Time No Known Drug Allergies Allergy Verified 01/18/19 12:19 - Social History Does the pt smoke?: No Smoking Status: Never smoker Does the pt drink ETOH?: No Does the pt have substance abuse?: No - Immunizations Immunizations are current?: Yes - POLST Patient has POLST: No PD ED PE NORMAL - Vitals Vital signs reviewed: Yes - General General: Alert and oriented X 3, No acute distress, Well developed/nourished - HEENT HEENT: Pharynx benign - Neck Neck: Supple, no meningeal sign, No adenopathy - Cardiac Cardiac: RRR, No murmur - Respiratory Respiratory: Clear bilaterally - Abdomen Abdomen: Normal bowel sounds, Soft, Non distended, No organomegaly, Other (tender without guarding nor percussion/rebound in LLQ. No referred tenderness. ) - Female Female : Deferred - Rectal Rectal: Deferred - Back Back: No CVA TTP - Derm Derm: Normal color, Warm and dry - Extremities Extremities: Normal ROM s pain, No edema, No calf tenderness / cord - Neuro Neuro: Alert and oriented X 3, No motor deficit, Normal speech Results - Vitals Vitals: Oxygen O2 Source Room air - Labs Labs: Laboratory Tests 01/18/19 01/18/19 01/18/19 12:55 13:28 13:28 WBC 7.5 RBC 4.32 Hgb 13.3 Hct 40.0 MCV 92.6 MCH 30.8 MCHC 33.3 RDW 11.9 L Plt Count 299 MPV 10.0 Neut # (Auto) 4.8 Lymph # (Auto) 2.1 [place] # (Auto) 0.5 Eos # (Auto) 0.1 Baso # (Auto) 0.0 Absolute Nucleated RBC 0.00 Nucleated RBC % 0.0 Sodium 140 Potassium 3.7 Chloride 107 Carbon Dioxide 22 Anion Gap 11.0 BUN 9 Creatinine 0.8 Estimated GFR (MDRD) 79 L Glucose 92 Calcium 9.0 Total Bilirubin 0.6 AST 22 ALT 18 Alkaline Phosphatase 72 Total Protein 6.6 L Albumin 3.6 Globulin 3.0 Albumin/Globulin Ratio 1.2 Lipase 36 Urine Color YELLOW Urine Clarity CLEAR Urine pH 6.0 Ur Specific [place] 1.020 Urine Protein NEGATIVE Urine Glucose (UA) NEGATIVE Urine Ketones NEGATIVE Urine Occult Blood NEGATIVE Urine Nitrite NEGATIVE Urine Bilirubin NEGATIVE Urine Urobilinogen 0.2 (NORMAL) Ur Leukocyte Esterase TRACE H Urine RBC None Seen Urine WBC 4-5 Ur Squamous Epith Cells MOD Squamous H Urine Bacteria Rare Ur Microscopic Review INDICATED Urine Culture Comments NOT INDICATED Urine HCG, Qual NEGATIVE PD MEDICAL DECISION MAKING - ED course Complexity details: considered differential (non acute abd exam and no symptoms concerning for abscess/perforation. Shared decision to treat like flare UC/episode of diverticulitis.), d/w patient Departure - Departure Disposition: 01 Home, Self Care Clinical Impression: Left lower quadrant abdominal pain Exacerbation of ulcerative colitis Qualifiers: Digestive disease complication type: without complication Qualified Code(s): K51.90 - Ulcerative colitis, unspecified, without complications Condition: Stable Record reviewed to determine appropriate education?: Yes Instructions: Colitis Ulcerative Dc Follow-Up: Shelley Ordoñez DO [Primary Care Provider] - Joe Angeles MD [Provider Admit Priv/Credential] - Prescriptions: Cephalexin [Keflex] 500 mg PO TID #21 capsule dexAMETHasone [Decadron] 4 mg PO DAILY #7 tablet Hydrocodone/Acetaminophen [[place] 5-325 Tablet] 1 each PO Q6H PRN #15 tablet PRN Reason: Pain Metronidazole [Flagyl] 500 mg PO BID #15 tablet Ondansetron Odt [Zofran] 4 mg TL Q6H PRN #20 tablet PRN Reason: Nausea / Vomiting Comments: Presume this is a flareup of the ulcerative colitis or possibly an episode of diverticulitis. Small frequent fluids to stay hydrated. Diet as tolerated. Decadron steroid anti-inflammatory daily for a week for the inflammation. Cephalexin and metronidazole for presumed infection as well. Ondansetron if needed for nausea. Add Tylenol or hydrocodone if needed for pain. Follow-up with your primary care or gastroenterology if not improving well over the next couple of days and return if worsening. Subsequently follow-up with your can doffer for further evaluation and likely scoping. They will not want to do that while its flared up so the treatment above is appropriate at this point. Discharge Date/Time: 01/18/19 16:22
[2019-01-18] MEDS ORDERED: ONDANSETRON ODT 4 MG TABLET TL STA (15:39)
[2019-01-18] MEDS ORDERED: ACETAMINOPHEN 325 MG TABLET PO STA (15:40)
[2019-01-18] MEDS ORDERED: metroNIDAZOLE 250 MG TABLET PO STA (15:40)
[2019-01-18] MEDS ORDERED: DEXAMETHASONE 10 MG/ML VIAL PO STA (15:40)
[2019-01-18] MEDS ORDERED: cephALEXin 250 MG CAPSULE PO STA (15:40)
[2019-01-18] MEDS ORDERED: CHERRY SYRUP 10 ML UDC PO ONE (15:40)
== END 2019-01-18 16:22 | disposition home or self-care (01) ==
LOC: ED 12:10
DX: K51.90 Ulcerative colitis, unspecified, without complications (principal)
CPT/HCPCS: 36415; 80053; 81001; 81025; 83690; 85025; 99283; 99284; A9270; Q0162; 81003; 87086

== ENCOUNTER 2019-01-26 18:43 | Emergency (ER) | payer OTHER ==
--- NOTE | 2019-01-26 18:50 | ED Physician Documentation ---
History of Present Illness - Stated complaint Stated Complaint: ABD PX - History obtained from History obtained from: Patient - Additonal information Additional information: Patient is a 43-year-old female with history of ulcerative colitis presenting with persistent abdominal pain and nausea over the past 1 week. Patient was seen here about 1 week ago and declined imaging at that time, But was sent home with multiple antibiotics, as well as steroids and Zofran. Patient reports that her nausea is only worsened, but is not experiencing vomiting. Patient also reports that her pain is worsened and is not only left-sided but now right- sided. Patient reports a burning sensation to the vagina and rectal area without rash or other complication including dysuria or hematuria. Patient has had normal bowel movements that are not bloody. No fever. No other improving or worsening factors noted. Review of Systems Constitutional: denies: Fever GI: reports: Abdominal Pain, Nausea. 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: Endometriosis : None HEENT: Chronic vision loss Psych: Depression, Anxiety Musculoskeletal: None - Past Surgical History Past Surgical History: Yes General: Colonoscopy /CARTOONIST SPECIAL EFFECTS: Endometrial ablation, Oophrectomy, Other HEENT: Other - Present Medications Home Medications: Ambulatory Orders Medication Instructions Recorded Confirmed Cetirizine HCl [Zyrtec] 10 mg PO DAILY PRN 03/16/16 11/21/17 clonazePAM [KlonoPIN] 0.5 mg PO BID PRN 03/16/16 11/22/17 Albuterol Sulfate [Proair Hfa 1 - 2 puffs INH Q4H PRN 11/21/17 11/22/17 Inhaler] Amitriptyline [Elavil] 10 mg PO HS 11/21/17 11/22/17 Bupropion HCl [Wellbutrin Xl] 300 mg PO DAILY 11/21/17 11/21/17 Gabapentin 300 mg PO DAILY PM 11/21/17 11/22/17 Sulfasalazine [Azulfidine] 500 mg PO BID 11/21/17 11/22/17 Albuterol Sulf [Ventolin Hfa 1 - 2 puffs INH Q4HR PRN #1 inhaler 10/20/18 Inhaler] predniSONE [Deltasone] 20 mg PO [id number] #21 tab 10/20/18 Valacyclovir HCl [Valacyclovir] 1,000 mg PO TID #20 tablet 11/14/18 dexAMETHasone [Decadron] 4 mg PO DAILY #5 tablet 11/14/18 Cephalexin [Keflex] 500 mg PO TID #21 capsule 01/18/19 Hydrocodone/Acetaminophen [[place] 1 each PO Q6H PRN #15 tablet 01/18/19 5-325 Tablet] Metronidazole [Flagyl] 500 mg PO BID #15 tablet 01/18/19 Ondansetron Odt [Zofran] 4 mg TL Q6H PRN #20 tablet 01/18/19 dexAMETHasone [Decadron] 4 mg PO DAILY #7 tablet 01/18/19 - Allergies Allergies/Adverse Reactions: Allergies Allergy/AdvReac Type Severity Reaction Status Date / Time No Known Drug Allergies Allergy Verified 01/18/19 12:19 - Social History Does the pt smoke?: No Smoking Status: Never smoker Does the pt drink ETOH?: No Does the pt have substance abuse?: No - Immunizations Immunizations are current?: Yes - POLST Patient has POLST: No PD ED PE NORMAL - Vitals Vital signs reviewed: Yes - General General: Alert and oriented X 3, No acute distress, Well developed/nourished - HEENT HEENT: Atraumatic, Moist mucous membranes - Neck Neck: Supple, no meningeal sign - Cardiac Cardiac: RRR, No murmur - Respiratory Respiratory: No respiratory distress, Clear bilaterally - Abdomen Abdomen: Soft, Non distended. No: Non tender (Diffuse moderate tenderness without rebound or guarding) - Derm Derm: Normal color, Warm and dry, No rash - Extremities Extremities: No deformity, No tenderness to palpate, No edema - Neuro Neuro: Alert and oriented X 3, No motor deficit, No sensory deficit - Psych Psych: Normal mood, Normal affect Results - Vitals Vitals: Vital Signs - 24 hr 01/26/19 18:57 Temperature 36.8 C Heart Rate 99 Respiratory 18 Rate Blood Pressure 137/82 H O2 Saturation 99 Oxygen O2 Source Room air - Labs Labs: Laboratory Tests 01/26/19 01/26/19 01/26/19 18:48 19:30 19:30 WBC 9.2 RBC 4.35 Hgb 13.2 Hct 40.9 MCV 94.0 MCH 30.3 MCHC 32.3 RDW 11.7 L Plt Count 303 MPV 10.0 Neut # (Auto) 4.9 Lymph # (Auto) 3.1 [place] # (Auto) 0.8 Eos # (Auto) 0.2 Baso # (Auto) 0.1 Absolute Nucleated RBC 0.00 Nucleated RBC % 0.0 Sodium 142 Potassium 4.1 Chloride 110 Carbon Dioxide 24 Anion Gap 8.0 BUN 13 Creatinine 1.0 Estimated GFR (MDRD) 61 L Glucose 91 Lactic Acid Calcium 8.6 Total Bilirubin 0.4 AST 17 ALT 15 Alkaline Phosphatase 58 Total Protein 6.2 L Albumin 3.2 Globulin 3.0 Albumin/Globulin Ratio 1.1 Lipase 43 Urine Color YELLOW Urine Clarity CLEAR Urine pH 7.0 Ur Specific [place] 1.010 Urine Protein NEGATIVE Urine Glucose (UA) NEGATIVE Urine Ketones NEGATIVE Urine Occult Blood NEGATIVE Urine Nitrite NEGATIVE Urine Bilirubin NEGATIVE Urine Urobilinogen 0.2 (NORMAL) Ur Leukocyte Esterase TRACE H Urine RBC None Seen Urine WBC 0-3 Ur Squamous Epith Cells MOD Squamous H Urine Bacteria None Seen Ur Microscopic Review INDICATED Urine Culture Comments NOT INDICATED Urine HCG, Qual NEGATIVE 01/26/19 19:30 WBC RBC Hgb Hct MCV MCH MCHC RDW Plt Count MPV Neut # (Auto) Lymph # (Auto) [place] # (Auto) Eos # (Auto) Baso # (Auto) Absolute Nucleated RBC Nucleated RBC % Sodium Potassium Chloride Carbon Dioxide Anion Gap BUN Creatinine Estimated GFR (MDRD) Glucose Lactic Acid 1.0 Calcium Total Bilirubin AST ALT Alkaline Phosphatase Total Protein Albumin Globulin Albumin/Globulin Ratio Lipase Urine Color Urine Clarity Urine pH Ur Specific [place] Urine Protein Urine Glucose (UA) Urine Ketones Urine Occult Blood Urine Nitrite Urine Bilirubin Urine Urobilinogen Ur Leukocyte Esterase Urine RBC Urine WBC Ur Squamous Epith Cells Urine Bacteria Ur Microscopic Review Urine Culture Comments Urine HCG, Qual PD MEDICAL DECISION MAKING - ED course Complexity details: reviewed old records, reviewed results, re-evaluated patient, considered differential, d/w patient, d/w family ED course: Patient has history of ulcerative colitis and believes she may have been having a flare over the past 1 week. Patient declined imaging when she was seen in the ED last week but did start steroids, Zofran, and multiple antibiotics as prescribed. However, patient reports that she has since stopped steroids as she does not tolerate them well. Patient denies bloody diarrhea, but rather more constipation. Patient also denies vomiting, but has significant nausea. Abdo cheryl exam reveals generalized tenderness, but no surgical or acute abdomen present. At this time, patient is amenable to imaging. Screening lab work and urinalysis obtained which returned relatively unremarkable. CT imaging also returned relatively unremarkable except for changes of mild colitis without other complication. No signs of obstruction, but significant stool burden present. No other abscess or other complicating factors noted. Discussed results and recommendations with patient including possibly starting stool softener or laxative if she could tolerate to help relieve stool burden which will likely help with symptoms. Also discussed continuing antibiotics given mild colitis findings. Patient also has Zofran at home to control nausea. Discussed return precautions and need for follow-up. Patient voiced understanding and is comfortable with discharge plan. Departure - Departure Disposition: 01 Home, Self Care Clinical Impression: Abdominal pain Condition: Good Instructions: Abdominal Pain Follow-Up: Leia Alvarez PA-C [Primary Care Provider] - Within 3 Days Comments: Please continue all home medications as previously instructed including nausea medication and antibiotics. Recommend hydration, bland diet advancing as tolerated, and follow-up with your primary care physician next 2 to 3 days and gastroenterology as scheduled next week. Return to ED sooner if experience worsening symptoms or have other concerns.
[2019-01-26 19:16] LABS: BILIRUBIN,URINE NEGATIVE (NEGATIVE); CLARITY,URINE CLEAR (CLEAR); GLUCOSE, URINE (UA) NEGATIVE (NEGATIVE); KETONES,URINE (UA) NEGATIVE (NEGATIVE); LEUKOCYTE ESTERASE, URINE TRACE (NEGATIVE); NITRITE,URINE NEGATIVE (NEGATIVE); OCCULT BLOOD,URINE NEGATIVE (NEGATIVE); PROTEIN,URINE NEGATIVE (NEGATIVE); UROBILINOGEN,URINE 0.2 (NORMAL) E.U./dL (NORMAL)
[2019-01-26 19:17] LABS: HCG UR QUAL NEGATIVE
[2019-01-26] MEDS ORDERED: HYDROmorphone 1 MG/ML CARPUJECT IVP STA (19:20)
[2019-01-26] MEDS ORDERED: ONDANSETRON 4 MG/2 ML VIAL IVP STA (19:20)
[2019-01-26] MEDS ORDERED: SODIUM CHLORIDE 0.9% 1,000 ML IV ONE (19:20)
[2019-01-26 19:39] LABS: BASOPHILS # (AUTO) 0.1 10^3/uL (0.0-0.1); BASOPHILS % (AUTO) 0.5 %; EOSINOPHILS # (AUTO) 0.2 10^3/uL (0.0-0.7); EOSINOPHILS % (AUTO) 2.5 %; HGB - HEMOGLOBIN 13.2 g/dL (12.0-16.0); LYMPHOCYTES # (AUTO) 3.1 10^3/uL (1.5-3.5); LYMPHOCYTES % (AUTO) 34.1 %; MEAN CORPUSCULAR HEMOGLOBIN 30.3 pg (27.0-31.0); MEAN CORPUSCULAR HGB CONC 32.3 g/dL (32.0-36.0); MONOCYTES # (AUTO) 0.8 10^3/uL (0.0-1.0); MONOCYTES % (AUTO) 8.5 %; NEUTROPHILS # (AUTO) 4.9 10^3/uL (1.5-6.6); NEUTROPHILS % (AUTO) 53.5 %; PLT - PLATELET COUNT 303 10^3/uL (130-450); RED BLOOD COUNT 4.35 10^6/uL (4.20-5.40); RED CELL DISTRIBUTION WIDTH 11.7 % (12.0-15.0); WHITE BLOOD COUNT 9.2 x10^3/uL (4.8-10.8)
[2019-01-26 19:40] LABS: BACTERIA,URINE None Seen /HPF (None Seen); RBC,URINE None Seen /HPF (0-5); SQUAMOUS EPITHELIAL CELL,UR MOD Squamous (<= Few)
[2019-01-26 19:50] LABS: ALBUMIN 3.2 g/dL (3.2-5.5); ALBUMIN/GLOBULIN RATIO 1.1 (1.0-2.2); BILIRUBIN,TOTAL 0.4 mg/dL (0.2-1.0); CALCIUM 8.6 mg/dL (8.5-10.3); TOTAL PROTEIN 6.2 g/dL (6.7-8.2)
[2019-01-26] MEDS ORDERED: IOVERSOL 320 100 ML VIAL IVP ONE ×2 (20:38→21:03)
--- NOTE | 2019-01-26 21:16 | CT Report ---
Reason: UC, diverticulitis hx, pain with nausea Procedure Date: 01/26/2019 Accession Number: [id number] / [id number] Procedure: CT - Abdomen/Pelvis W CPT Code: FULL RESULT: EXAM: CT ABDOMEN AND PELVIS EXAM DATE: 01/26/2019 09:01 PM. CLINICAL HISTORY: Lower abdominal and pelvic pain x8 days. Increased nausea and pain x2 days. History of ulcerative colitis and diverticulitis. COMPARISONS: ABDOMEN/PELVIS W/ 03/17/2016 12:55 AM. TECHNIQUE: Routine helical CT imaging was performed through the abdomen and pelvis. IV contrast: OPTI 320 100ML. Enteric contrast: No. Reconstructions: Coronal and sagittal. In accordance with CT protocol optimization, one or more of the following dose reduction techniques were utilized for this exam: automated exposure control, adjustment of mA and/or KV based on patient size, or use of iterative reconstructive technique. FINDINGS: Lung Bases: Clear. Liver: 14 mm cyst in segment 2 (3/15). No new focal hepatic lesion. Gallbladder/Bile Ducts: Unremarkable. No visualized stones or biliary ductal dilatation. Spleen: Normal. Pancreas: Normal. Adrenal Glands: Normal. Kidneys and Ureters: A tiny 3 mm hypoattenuating focus in the anterior right lower pole cortex likely represent a cyst (3/34). No stones, hydronephrosis, or hydroureter. Peritoneal Cavity/Bowel: Moderate to large colonic stool volume. Mild fat stranding adjacent to the distal transverse through proximal descending colon without associated colon wall thickening. No evidence for bowel obstruction. The appendix is normal. No free fluid, pneumoperitoneum, or adenopathy. Pelvic Organs: The bladder, uterus, and ovaries are within normal limits. Intravaginal contraceptive ring noted. Vasculature: Unremarkable. Bones: Transitional partially lumbarized S1 vertebral body, a normal variant. No acute bony abnormality. Other: Tiny fat-containing umbilical hernia. IMPRESSION: 1. Moderate to large colonic stool volume. 2. Mild fat stranding adjacent to the distal transverse through proximal ascending colon without associated colon wall thickening, possibly representing mild colitis. RADIA
[2019-01-26 21:46] VITALS: BP 118/74
== END 2019-01-26 21:45 | disposition home or self-care (01) ==
LOC: ED 18:43
DX: K52.9 Noninfective gastroenteritis and colitis, unspecified (principal); Z87.19 Personal history of other diseases of the digestive system
CPT/HCPCS: 36415; 74177; 80053; 81001; 81025; 83605; 83690; 85025; 96361; 96374; 99284; J1170; Q9967; 81003; 87086

== ENCOUNTER 2019-02-06 03:35 | Outpatient (CLI) | payer OTHER | END 2019-02-06 03:36 | disposition EMS.NT | LOC: EMS 03:35 | PROVIDERS: ATTEND Surgery | DX: R51 Headache (principal); R11.2 Nausea with vomiting, unspecified ==

== ENCOUNTER 2019-02-06 04:11 | Emergency (ER) | payer OTHER ==
[2019-02-06] MEDS ORDERED: diphenhydrAMINE INJ 50 MG/ML VIAL IVP STA (04:23)
[2019-02-06] MEDS ORDERED: SODIUM CHLORIDE 0.9% 1,000 ML IV ONE (04:23)
[2019-02-06] MEDS ORDERED: METOCLOPRAMIDE 10 MG/2 ML VIAL IVP STA (04:23)
[2019-02-06 04:56] LABS: CALCIUM 8.6 mg/dL (8.5-10.3); CREATININE 0.7 mg/dL (0.4-1.0)
[2019-02-06] MEDS ORDERED: KETOROLAC 30 MG/ML VIAL IVP STA (05:55)
--- NOTE | 2019-02-06 06:01 | ED Physician Documentation ---
PD HPI HEADACHE - Stated complaint Stated Complaint: COYLE/NK PX/CHILLS - Chief complaint Chief Complaint: Neuro - History obtained from History obtained from: Patient, Family - History of Present Illness Timing - onset: How many hours ago (a few), Today Timing - onset during: Rest Timing - duration: Hours Timing - details: Gradual onset Location: Front Quality: Throbbing, Aching Associated symptoms: Nausea. No: Fever, Stiff neck, Vomiting, Weakness, N umbness, Syncope, Seizure, Eye pain, Vision changes Improved by: Rest, Dark room Worsened by: Light Contributing factors: Other (patient is currently doing a colonoscopy prep and feels dehydrated). No: Anticoagulated, Hypertension, Recent illness, Trauma Similar symptoms before: Diagnosis (has a hx of migraine headaches) Recently seen: Not recently seen - Treatment prior to arrival Treatment prior to arrival: none Review of Systems Ten Systems: 10 systems reviewed and negative Constitutional: reports: Chills. denies: Fever Eyes: reports: Photophobia. denies: Loss of vision, Decreased vision Ears: reports: Reviewed and negative Throat: reports: Reviewed and negative Cardiac: denies: Chest pain / pressure GI: reports: Nausea. denies: Abdominal Pain, Vomiting, Diarrhea Musculoskeletal: denies: Neck pain Neurologic: reports: Generalized weakness, Headache. denies: Focal weakness, Numbness, Difficulty speaking, Near syncope, Seizure, Confused, LOC Psychiatric: reports: Reviewed and negative Immunocompromised: reports: Reviewed and negative PD PAST MEDICAL HISTORY - Past Medical History Past Medical History: Yes Cardiovascular: None Respiratory: Asthma Endocrine/Autoimmune: None GI: Diverticulitis, Ulcerative colitis FAMILY MEDICINE CHAIR: Endometriosis : None HEENT: None Psych: Depression, Anxiety Musculoskeletal: Other Derm: None - Past Surgical History Past Surgical History: Yes General: Colonoscopy /FAMILY MEDICINE CHAIR: Endometrial ablation, Oophrectomy, Other HEENT: Other - Present Medications Home Medications: Ambulatory Orders Medication Instructions Recorded Confirmed Cetirizine HCl [Zyrtec] 10 mg PO DAILY PRN 03/16/16 02/05/19 clonazePAM [KlonoPIN] 0.5 mg PO BID PRN 03/16/16 02/05/19 Albuterol Sulfate [Proair Hfa 1 - 2 puffs INH Q4H PRN 11/21/17 02/05/19 Inhaler] Amitriptyline [Elavil] 10 mg PO HS 11/21/17 02/05/19 Bupropion HCl [Wellbutrin Xl] 300 mg PO DAILY 11/21/17 02/05/19 RX: Gabapentin 300 mg PO DAILY PM 11/21/17 02/05/19 Hydrocodone/Acetaminophen [[place] 1 each PO Q6H PRN #15 tablet 01/18/19 02/05/19 5-325 Tablet] Ondansetron Odt [Zofran] 4 mg TL Q6H PRN #20 tablet 01/18/19 02/05/19 Metoclopramide [Reglan] 10 mg PO Q6H PRN #6 tablet 02/06/19 - Allergies Allergies/Adverse Reactions: Allergies Allergy/AdvReac Type Severity Reaction Status Date / Time No Known Drug Allergies Allergy Verified 01/18/19 12:19 - Social History Does the pt smoke?: No Smoking Status: Never smoker Does the pt drink ETOH?: No Does the pt have substance abuse?: No - Immunizations Immunizations are current?: Yes - POLST Patient has POLST: No PD ED PE NORMAL - Vitals Vital signs reviewed: Yes - General General: Alert and oriented X 3, No acute distress, Well developed/nourished - HEENT HEENT: Atraumatic, PERRL, EOMI, Moist mucous membranes, Pharynx benign - Cardiac Cardiac: RRR, No murmur, No gallop, No rub - Respiratory Respiratory: No respiratory distress, Clear bilaterally - Abdomen Abdomen: Soft, Non tender, Non distended - Female Female : Deferred - Rectal Rectal: Deferred - Derm Derm: Normal color, Warm and dry, No rash - Extremities Extremities: No deformity, No edema - Neuro Neuro: Alert and oriented X 3, No motor deficit, No sensory deficit Eye Opening: Spontaneous Motor: Obeys Commands Verbal: Oriented GCS Score: 15 - Psych Psych: Normal mood, Normal affect Results - Vitals Vitals: Vital Signs - 24 hr 02/06/19 02/06/19 02/06/19 04:15 04:21 06:17 Temperature 35.9 C L Heart Rate 90 81 89 Respiratory 18 16 16 Rate Blood Pressure 123/59 L 123/59 L 115/63 O2 Saturation 97 100 100 Oxygen O2 Source Room air - Labs Labs: Laboratory Tests 02/06/19 04:32 Sodium 141 Potassium 3.7 Chloride 109 Carbon Dioxide 21 Anion Gap 11.0 BUN 8 Creatinine 0.7 Estimated GFR (MDRD) 92 Glucose 119 H Calcium 8.6 PD MEDICAL DECISION MAKING - ED course Complexity details: reviewed results, re-evaluated patient, considered differential, d/w patient, d/w family ED course: ddx- tension headache, migraine headache, dehydration, SAH, electrolyte abnormality 43 y/o F with hx of migraine headaches with reported migraine after doing a colonoscopy prep today. Pt reports headache is moderate with associated chills and nausea. No abdominal pain. Pt with no focal deficits on neuro exam, normal strength, speech, vision and coordination. Pt given iv reglan and benadyl with marked improved in symptoms and headache. Also given fluids. However BMP is normal. Still mild headache present thus given a dose of toradol as well. Pt is now feeling well and stable for discharge and will f/u with her PCP and her doctor for her colonoscopy today. Departure - Departure Disposition: 01 Home, Self Care Clinical Impression: Migraine headache Condition: Stable Record reviewed to determine appropriate education?: Yes Instructions: ED Headache Migraine Follow-Up: Shelley Ordoñez DO [Primary Care Provider] - Prescriptions: Metoclopramide [Reglan] 10 mg PO Q6H PRN #6 tablet PRN Reason: Nausea / Vomiting
[2019-02-06 06:37] VITALS: BP 118/64
== END 2019-02-06 06:37 | disposition home or self-care (01) ==
LOC: ED 04:11
DX: G43.909 Migraine, unspecified, not intractable, without status migrainosus (principal)
CPT/HCPCS: 36415; 80048; 96361; 96374; 96375; 99284

== ENCOUNTER 2019-02-06 12:36 | Day surgery (SDC) | payer OTHER ==
[2019-02-06 13:22] LABS: HCG UR QUAL NEGATIVE
[2019-02-06] MEDS ORDERED: LACTATED RINGERS 1,000 ML IV ONE (13:29)
[2019-02-06] MEDS ORDERED: ONDANSETRON 4 MG/2 ML VIAL ONE (13:50)
[2019-02-06] MEDS ORDERED: fentaNYL 250 MCG/5 ML VIAL IVP ONE (15:01)
[2019-02-06] MEDS ORDERED: MIDAZOLAM 2 MG/2 ML VIAL IVP ONE (15:01)
[2019-02-06 15:50] VITALS: BP 121/73
== END 2019-02-06 12:37 | disposition home or self-care (01) ==
LOC: SDS 12:36
PROVIDERS: ATTEND Internal Medicine
PROC: 0DBP8ZX Excision of Rectum, Via Natural or Artificial Opening Endoscopic, Diagnostic (ICD-10-PCS; 2019-02-06)
PROC: 0DBF8ZX Excision of Right Large Intestine, Via Natural or Artificial Opening Endoscopic, Diagnostic (ICD-10-PCS; 2019-02-06)
PROC: 0DBG8ZX Excision of Left Large Intestine, Via Natural or Artificial Opening Endoscopic, Diagnostic (ICD-10-PCS; principal; 2019-02-06 14:00)
DX: K51.00 Ulcerative (chronic) pancolitis without complications (principal); R10.32 Left lower quadrant pain; R19.4 Change in bowel habit; G43.909 Migraine, unspecified, not intractable, without status migrainosus
CPT/HCPCS: 36415; 45380; 80048; 81025; 96361; 96374; 96375; 99283; 99284; J1200; J2765; J3010; J7120

== ENCOUNTER 2019-03-25 14:32 | Emergency (ER) | payer OTHER ==
[2019-03-25 15:05] LABS: BILIRUBIN,URINE NEGATIVE (NEGATIVE); GLUCOSE, URINE (UA) NEGATIVE (NEGATIVE); KETONES,URINE (UA) NEGATIVE (NEGATIVE); LEUKOCYTE ESTERASE, URINE NEGATIVE (NEGATIVE); NITRITE,URINE NEGATIVE (NEGATIVE); OCCULT BLOOD,URINE NEGATIVE (NEGATIVE); PH,URINE 5.5 PH (5.0-7.5); PROTEIN,URINE NEGATIVE (NEGATIVE); UROBILINOGEN,URINE 0.2 (NORMAL) E.U./dL (NORMAL)
[2019-03-25 15:07] LABS: CLARITY,URINE CLEAR (CLEAR); HCG UR QUAL NEGATIVE
[2019-03-25 15:08] LABS: BASOPHILS % (AUTO) 0.3 %; EOSINOPHILS # (AUTO) 0.1 10^3/uL (0.0-0.7); EOSINOPHILS % (AUTO) 1.1 %; HGB - HEMOGLOBIN 13.9 g/dL (12.0-16.0); LYMPHOCYTES # (AUTO) 1.8 10^3/uL (1.5-3.5); MEAN CORPUSCULAR VOLUME 90.9 fL (81.0-99.0); MEAN PLATELET VOLUME 10.4 fL (7.9-10.8); MONOCYTES # (AUTO) 0.5 10^3/uL (0.0-1.0); MONOCYTES % (AUTO) 7.5 %; NEUTROPHILS # (AUTO) 3.7 10^3/uL (1.5-6.6); NEUTROPHILS % (AUTO) 60.6 %; PLT - PLATELET COUNT 276 10^3/uL (130-450); RED BLOOD COUNT 4.63 10^6/uL (4.20-5.40); RED CELL DISTRIBUTION WIDTH 11.9 % (12.0-15.0); WHITE BLOOD COUNT 6.1 x10^3/uL (4.8-10.8)
[2019-03-25 15:24] LABS: ALBUMIN 3.7 g/dL (3.2-5.5); ALBUMIN/GLOBULIN RATIO 1.1 (1.0-2.2); BILIRUBIN,TOTAL 0.6 mg/dL (0.2-1.0); CALCIUM 9.3 mg/dL (8.5-10.3); CREATININE 0.8 mg/dL (0.4-1.0)
--- NOTE | 2019-03-25 15:56 | ED Physician Documentation ---
PD HPI ABD PAIN - Stated complaint Stated Complaint: LRQ PX - Chief complaint Chief Complaint: Abd Pain - History obtained from History obtained from: Patient - History of Present Illness Timing - onset: Yesterday Timing - duration: Hours (20) Timing - details: Gradual onset Pain level now: 8 Location: RLQ Radiation: Lower back Worsened by: Moving Associated symptoms: Nausea, Diarrhea, Loss of appetite. No: Fever, Vomiting, Hematochezia, Dysuria, Hematuria, Vaginal bleeding Recently seen: Not recently seen - Additional information Additional information: This is a 43-year-old presents with complaints that she has right lower abdominal pain that started around 6 PM yesterday it was still there when she woke up this morning and it is 7-8 out of 10 and has not gone away through the day today. She did not take anything for it because she says she has not been eating well and she did not want to upset her stomach. She has had pain chronically in the left pelvis and lower abdomen due to endometriosis and had "several surgeries regarding that. She thinks she still has her appendix. She denies stating she has a NuvaRing. Has no burning with urination or hematuria and denies history of kidney stone. Over the weekend she felt really warm and sweaty but did not check her temperature and she is felt lightheaded with a headache and nauseous but no vomiting. She said "urgent" diarrhea over the past several weeks. When the symptoms all started she thought it might be related to stress. 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 She denies any injury and denies recent illness with sore throat stuffy nose or coughing. Review of Systems Constitutional: reports: Chills, Sweats. denies: Fever Nose: denies: Congestion Throat: denies: Sore throat Cardiac: denies: Palpitations Respiratory: denies: Dyspnea, Cough GI: reports: Abdominal Pain, Nausea, Diarrhea. denies: Vomiting : reports: Control. denies: Dysuria, Frequency, Hematuria, Now EGA Skin: denies: Rash Musculoskeletal: reports: Back pain Neurologic: reports: Headache. 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: Endometrial ablation, Oophrectomy, Other HEENT: Other - Present Medications Home Medications: Ambulatory Orders Medication Instructions Recorded Confirmed Cetirizine HCl [Zyrtec] 10 mg PO DAILY PRN 03/16/16 02/06/19 clonazePAM [KlonoPIN] 0.5 mg PO BID PRN 03/16/16 02/06/19 Albuterol Sulfate [Proair Hfa 1 - 2 puffs INH Q4H PRN 11/21/17 02/05/19 Inhaler] Amitriptyline [Elavil] 10 mg PO HS 11/21/17 02/06/19 Bupropion HCl [Wellbutrin Xl] 300 mg PO DAILY 11/21/17 02/06/19 Gabapentin 300 mg PO DAILY PM 11/21/17 02/06/19 Ondansetron Odt [Zofran] 4 mg TL Q6H PRN #20 tablet 01/18/19 02/06/19 Metoclopramide [Reglan] 10 mg PO Q6H PRN #6 tablet 02/06/19 - Allergies Allergies/Adverse Reactions: Allergies Allergy/AdvReac Type Severity Reaction Status Date / Time No Known Drug Allergies Allergy Verified 03/25/19 14:40 - Social History Does the pt smoke?: No Smoking Status: Never smoker Does the pt drink ETOH?: No Does the pt have substance abuse?: No - Immunizations Immunizations are current?: Yes - POLST Patient has POLST: No PD ED PE NORMAL - Vitals Vital signs reviewed: Yes - General General: Alert and oriented X 3, No acute distress, Well developed/nourished - HEENT HEENT: Atraumatic, PERRL, Moist mucous membranes - Neck Neck: Supple, no meningeal sign, No adenopathy, Thyroid normal - Cardiac Cardiac: RRR, No murmur - Respiratory Respiratory: No respiratory distress, Clear bilaterally - Abdomen Abdomen: Normal bowel sounds, Soft, Other (Tenderness with voluntary guarding in the right suprapubic region.) - Back Back: Other (She jumps away with any percussion on her costovertebral angles or through the lumbar paraspinal area bilaterally) - Derm Derm: Normal color, Warm and dry, No rash - Extremities Extremities: No edema - Neuro Neuro: Alert and oriented X 3, Normal speech, Other (No gross neurological deficits.) Results - Vitals Vitals: Oxygen O2 Source Room air - Labs Labs: Laboratory Tests 03/25/19 03/25/19 03/25/19 14:45 15:02 15:02 WBC 6.1 RBC 4.63 Hgb 13.9 Hct 42.1 MCV 90.9 MCH 30.0 MCHC 33.0 RDW 11.9 L Plt Count 276 MPV 10.4 Neut # (Auto) 3.7 Lymph # (Auto) 1.8 [place] # (Auto) 0.5 Eos # (Auto) 0.1 Baso # (Auto) 0.0 Absolute Nucleated RBC 0.00 Nucleated RBC % 0.0 Sodium 141 Potassium 4.0 Chloride 109 Carbon Dioxide 23 Anion Gap 9.0 BUN 12 Creatinine 0.8 Estimated GFR (MDRD) 79 L Glucose 87 Calcium 9.3 Total Bilirubin 0.6 AST 23 ALT 19 Alkaline Phosphatase 62 Total Protein 7.0 Albumin 3.7 Globulin 3.3 Albumin/Globulin Ratio 1.1 Lipase 43 Urine Color YELLOW Urine Clarity CLEAR Urine pH 5.5 Ur Specific [place] 1.010 Urine Protein NEGATIVE Urine Glucose (UA) NEGATIVE Urine Ketones NEGATIVE Urine Occult Blood NEGATIVE Urine Nitrite NEGATIVE Urine Bilirubin NEGATIVE Urine Urobilinogen 0.2 (NORMAL) Ur Leukocyte Esterase NEGATIVE Ur Microscopic Review NOT INDICATED Urine Culture Comments NOT INDICATED Urine HCG, Qual NEGATIVE - Rads (name of study) u/s pelvis Radiology: See rad report PD MEDICAL DECISION MAKING - ED course Complexity details: reviewed old records, reviewed results, d/w patient ED course: CBC and BMP are normal. Urinalysis was negative. Ultrasound was ordered and the right ovary appears to have potential mass with some vascular flow that could represent some endometriosis. Patient received Toradol 30 mg IV and is complaining still of 4-5 out of 10 pain. 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 Recommend ibuprofen for pain control. Departure - Departure Disposition: 01 Home, Self Care Clinical Impression: RLQ abdominal pain Ovarian cyst Qualifiers: Laterality: right Qualified Code(s): N83.201 - Unspecified ovarian cyst, right side Condition: Good Instructions: ED Cyst Ovarian Follow-Up: Shelley Ordoñez DO [Primary Care Provider] - Fredy Cardenas DO [Provider Admit Priv/Credential] - Comments: Use ibuprofen or naproxen [id number] for pain. Contact the [employer] G[employer] specialist for follow-up regarding the cyst. Return if you have significantly increasing pain, vomiting, fever or other problems arise. Discharge Date/Time: 03/25/19 18:59
[2019-03-25] MEDS ORDERED: KETOROLAC 30 MG/ML VIAL IVP STA (16:12)
[2019-03-25] MEDS ORDERED: ONDANSETRON 4 MG/2 ML VIAL IVP STA (16:32)
--- NOTE | 2019-03-25 17:41 | Ultrasound Report ---
Reason: RLQ pain Procedure Date: 03/25/2019 Accession Number: [id number] / [id number] Procedure: US - Transvaginal CPT Code: FULL RESULT: EXAM: LIMITED PELVIC ULTRASOUND EXAM DATE: 03/25/2019 04:42 PM. CLINICAL HISTORY: Right lower quadrant pain. Evaluate right ovary. History of endometriosis. Status post left nephrectomy in 2008. COMPARISON: ABDOMEN/PELVIS W/ 01/26/2019 8:48 PM. TECHNIQUE: Realtime transabdominal pelvic scan performed to identify the right ovary and right adnexa , followed by transvaginal scan to provide greater detail of the right ovary and right adnexa, with static image documentation. FINDINGS: Uterus: Not evaluated. Right Ovary: 2.8 x 2 x 1.4 cm, volume 4.1 cc. Normal echotexture and blood flow. Within the right ovary, there is a isoechoic 1.1 x 1.3 x 1.4 cm mass which appears to have vascular flow. Left Ovary: Surgically absent. Free Fluid: None. Other: None. IMPRESSION: 1. Within the right ovary, there is a isoechoic 1.1 x 1.3 x 1.4 cm mass which appears to have vascular flow. On submitted images it is difficult to determine if this flow is within the mass versus around the periphery of the mass. Given patient's history of endometriosis this may represent endometrioma versus corpus luteal cyst, however, ovarian mass not excluded. Recommend follow-up ultrasound in 6-12 weeks versus MRI female pelvis for further evaluation. 2. Surgically absent left ovary. 3. The uterus was not evaluated. RADIA
[2019-03-25] MEDS ORDERED: MORPHINE 2 MG/ML CARPUJECT IVP STA (18:29)
[2019-03-25 18:58] VITALS: BP 118/68
== END 2019-03-25 18:59 | disposition home or self-care (01) ==
LOC: ED 14:32
DX: R10.31 Right lower quadrant pain (principal); N83.201 Unspecified ovarian cyst, right side; R51 Headache; Z87.19 Personal history of other diseases of the digestive system
CPT/HCPCS: 36415; 76830; 80053; 81001; 81003; 81025; 83690; 85025; 87086; 96374; 96375; 99284

== ENCOUNTER 2019-04-03 08:08 | Outpatient (CLI) | payer OTHER ==
--- NOTE | 2019-04-04 13:57 | MRI Report ---
Reason: PELVIC PAIN Procedure Date: 04/03/2019 Accession Number: [id number] / [id number] Procedure: MRI - Pelvis W/O CPT Code: FULL RESULT: EXAM: MR PELVIS WITHOUT CONTRAST EXAM DATE: 04/03/2019 09:54 AM. CLINICAL HISTORY: 44-year-old female. PELVIC PAIN. Previous report indicates history of endometriosis. COMPARISON: TRANSVAGINAL 03/25/2019 4:42 PM ABDOMEN/PELVIS 01/26/2019 8:48 PM. TECHNIQUE: Multiplanar breath-hold T1, T2 obtained through the pelvis on an MR scanner. Images obtained without contrast. FINDINGS: Reproductive Organs: Uterus: The uterus is retroverted and tipped toward the right and measures approximately 5.5 x 3.0 x 3.5 cm with volume 29 cc. The endometrial stripe measures 3 mm. There are no uterine masses. Right Ovary: The right ovary measures 1.9 x 1.3 x 2.9 cm with volume cc. The right ovary appears normal. No nodule or cyst is identified. Left Ovary: The left ovary is not clearly identified. No adnexal masses identified. Bowel: The visualized portions of the small bowel, colon, and rectum appear normal. Peritoneum: No free fluid. Retroperitoneum: No lymphadenopathy. Bladder: The urinary bladder appears normal. Other: Bone marrow signal is normal. Joints are unremarkable. IMPRESSION: Negative MRI pelvis without findings to explain pain. RADIA
== END 2019-04-03 08:09 | disposition home or self-care (01) ==
LOC: DI 08:08
PROVIDERS: ATTEND Obstetrics & Gynecology
DX: R10.2 Pelvic and perineal pain (principal)
CPT/HCPCS: 72195

== ENCOUNTER 2019-05-01 11:39 | Day surgery (SDC) | payer OTHER ==
--- NOTE | 2019-04-22 18:13 | HISTORY & PHYSICAL EXAMINATION ---
HPI - Admitted From Admitted from: Other - History Obtained From History obtained from: Patient Exam limitations: No limitations - History of Present Illness HPI Comment/Other: HPI: patient is here to see Dr Cyndi Quiroscy is a 44-year-old G0 last seen in clinic on 04/11/2019 here for preop examination for diagnostic laparoscopy with possible ablation of endometriosis and diagnostic hysteroscopy. Please see clinic notes from 04/11/2019 regarding her long-standing history of chronic pelvic pain related to stage III endometriosis. She has had multiple diagnostic laparoscopies with a LSO. She has failed medical management of various modalities. She had a Mirena IUD placed that migrated into her left cornua and has had chronic and worsening left-sided pelvic pain since then. Ultrasound and MRI have been unremarkable. Presents today for preoperative assessment for diagnostic laparoscopy with possible ablation of endometriosis and diagnostic hysteroscopy. No change in health history since time of prior exam. Allergies: No Known Allergies Medications: SUMATRIPTAN SUCCINATE 50 MG ORAL TABLET (SUMATRIPTAN SUCCINATE) Take one tablet by mouth as needed for migraine, may repeat one tablet more in two hours if needed, maximum dose two daily; Route: ORAL FLUTICASONE PROPIONATE 50 MCG/ACT NASAL SUSPENSION (FLUTICASONE PROPIONATE) Use one spray each nostril twice daily; Route: NASAL SINGULAIR 10 MG ORAL TABLET (MONTELUKAST SODIUM) Take one tablet by mouth every evening; Route: ORAL MULTIVITAMIN ADULT ORAL TABLET (MULTIPLE VITAMINS-MINERALS) TAke one tablet by mouth daily; Route: ORAL AMITRIPTYLINE HCL 10 MG ORAL TABLET (AMITRIPTYLINE HCL) Take one tablet by mouth at bedtime; Route: ORAL GABAPENTIN 300 MG ORAL CAPSULE (GABAPENTIN) Take two capsule daily; Route: ORAL PROAIR HFA 108 (90 BASE) MCG/ACT INHALATION AEROSOL SOLUTION (ALBUTEROL SULFATE) 2 puffs orally up to every 4 hrs as needed for wheezing; Route: INHALATION NUVARING VAGINAL RING 0.12-0.015 MG/24HR (ETONOGESTREL-ETHINYL ESTRADIOL) PLACE ONE RING INTRAVAGINALLY, LEAVE IN FOR THREE WEEKS, THEN REMOVE, AND PLACE ANOTHER NUVA RING, FOR ENDOMETRIOSIS ZYRTEC ALLERGY CAPSULE (CETIRIZINE HCL CAPS) Take one tablet by mouth daily; Route: ORAL CLONAZEPAM 0.5 MG TABS (CLONAZEPAM) TAKE 1 TABLET BY MOUTH TWICE DAILY NEEDED *MUST LAST 30 DAYS. NO DRIVING ON MEDICATION* BUPROPION HCL ER (XL) ORAL TABLET EXTENDED RELEASE 24 HOUR 300 MG (BUPROPION HCL) TAKE ONE TABLET BY MOUTH ONE TIME DAILY Problems: Preop exam (ICD-V72.84) (XDT34-R80.818) Ovarian mass (ICD-620.9) (ATU55-C59.9) Pelvic pain (ICD-625.9) (ZBC68-I23.2) Deep dyspareunia (KZS56-J32.12) History of endometriosis (ICD-V13.29) (JAL49-E17.42) Abdominal pain, right lower quadrant (ICD-789.03) (SMV53-O22.31) Ulcerative colitis (ICD-556.9) (IGC59-T41.90) Low back pain, chronic (ICD-724.2) (EPV44-P60.5) Migraine headache (ICD-346.90) (UXJ27-O73.909) Asthma (ICD-493.90) (FKM22-Q66.909) TMJ tenderness, left (ICD-524.69) (TOO01-D74.69) DeQuervains tenosynovitis (ICD-727.04) (DIB75-W62.4) Depression / anxiety (ICD-300.4) (FLD88-J99.8) ENDOMETRIOSIS (ICD-617.9) (WFG41-N05.9) Past Medical History: Endometriosis history of Lupron therapy chronic fatigue Asthma/Lung Arthritis Anxiety Past Surgical History: previous laparoscopic procedures to treat adhesions and endometriosis x 3 TMJ surgery 1999 and 2000 Laparoscopy for IUD misimplanted/perforation TMJ joint replacement - right (October - Dr. 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 Physical Constitutional: Constitutional: alert, no acute distress, well hydrated, well developed. Skin: normal turgor, normal color, no rashes. Head: atraumatic, normocephalic. Eyes: No conjunctival injection or scleral icterus Cardiovascular: RRR. Respiratory: no respiratory distress, clear to auscultation. Abdomen: nondistended, nontender, no guarding, normal BS. Extremities: no deformities. Neurologic: normal. Psych: affect and mood appropriate, normal interaction, good eye contact. Vulva: normal appearance, no lesions or masses. Urethra: normal. Bladder: normal. Vagina: normal, rugated, physiologic discharge. Cervix: normal. Uterus: mobile, non-tender, adequate support. Adnexa: normal, no masses, mobile, nontender. Impression & Recommendations: Problem # 1: Preop exam (ICD-V72.84) (QVH60-Q58.818) Orders: PRE OP -43223 (CPT-60496) Patient presents for preoperative assessment for diagnostic laparoscopy with possible ablation of endometriosis and diagnostic hysteroscopy. Risks/benefits/alternatives were reviewed. Risks include bleeding, infection, and damage to nearby tissue and organs. These were discussed in detail and written informed consent was obtained. Plan to proceed with diagnostic laparoscopy with possible ablation of endometriosis and diagnostic hysteroscopy. 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: positive: Endometrial ablation, Oophrectomy, Other HEENT: positive: Other Social & Family Hx - Social History Does the pt smoke?: No Smoking Status: Never smoker Does the pt drink ETOH?: No Does the pt have substance abuse?: No - POLST Patient has POLST: No Meds/Allgy - Home Medications Home Medications: Ambulatory Orders Medication Instructions Recorded Confirmed Cetirizine HCl [Zyrtec] 10 mg PO DAILY PRN 03/16/16 04/18/19 Albuterol Sulfate [Proair Hfa 1 - 2 puffs INH Q4H PRN 11/21/17 04/18/19 Inhaler] Amitriptyline [Elavil] 10 mg PO HS 11/21/17 04/18/19 Bupropion HCl [Wellbutrin Xl] 300 mg PO DAILY 11/21/17 04/18/19 Gabapentin 600 mg PO DAILY PM 11/21/17 04/18/19 Etonogestrel/Ethinyl Estradiol 1 each VG ONCE 04/18/19 04/18/19 [Nuvaring Vaginal Ring] Fluticasone [Flonase] 1 sprays JA BID PRN 04/18/19 04/18/19 Montelukast [Singulair] 10 mg PO QPM 04/18/19 04/18/19 Multivitamin [Multiple Vitamins] 1 each PO DAILY 04/18/19 04/18/19 Ondansetron Odt [Zofran] 4 mg PO Q6H PRN 04/18/19 SUMAtriptan succinate [Sumatriptan 50 mg PO ONCE PRN MDD 2 tabs 04/18/19 04/18/19 Succinate] - Allergies Allergies/Adverse Reactions: Allergies Allergy/AdvReac Type Severity Reaction Status Date / Time No Known Drug Allergies Allergy Verified 03/25/19 14:40
[~2019-05-01 11:39] MED LIST: ACETAMINOPHEN 1,000 MG/100 ML 100 ML IV ONE; CEFAZOLIN SODIUM IN 0.9 % NACL 2 GM/100 ML BAG IV ONE; CELECOXIB 100 MG CAPSULE PO ONE; GABAPENTIN 400 MG CAPSULE ONE
[2019-05-01] MEDS ORDERED: GLYCOPYRROLATE 1 MG/5 ML VIAL IVP ONE (11:40)
[2019-05-01] MEDS ORDERED: NEOSTIGMINE 1 MG/1 ML 10 ML MDV IVP ONE (11:40)
[2019-05-01] MEDS ORDERED: ONDANSETRON 4 MG/2 ML VIAL IVP ONE (11:40)
[2019-05-01] MEDS ORDERED: PROPOFOL 200 MG/20 ML VIAL IVP ONE (11:40)
[2019-05-01] MEDS ORDERED: KETOROLAC 30 MG/ML VIAL IVP ONE (11:40)
[2019-05-01] MEDS ORDERED: DEXAMETHASONE 4 MG/ML VIAL IVP ONE (11:40)
[2019-05-01] MEDS ORDERED: MIDAZOLAM 2 MG/2 ML VIAL IVP ONE (11:40)
[2019-05-01 12:00] LABS: HCG UR QUAL NEGATIVE
[2019-05-01] MEDS ORDERED: LACTATED RINGERS 1,000 ML IV ONE (12:09)
[2019-05-01 12:20] LABS: BASOPHILS % (AUTO) 0.4 %; EOSINOPHILS # (AUTO) 0.2 10^3/uL (0.0-0.7); EOSINOPHILS % (AUTO) 2.6 %; HGB - HEMOGLOBIN 13.7 g/dL (12.0-16.0); LYMPHOCYTES # (AUTO) 2.4 10^3/uL (1.5-3.5); LYMPHOCYTES % (AUTO) 33.8 %; MEAN CORPUSCULAR HGB CONC 32.9 g/dL (32.0-36.0); MEAN CORPUSCULAR VOLUME 91.4 fL (81.0-99.0); MEAN PLATELET VOLUME 10.3 fL (7.9-10.8); MONOCYTES # (AUTO) 0.5 10^3/uL (0.0-1.0); NEUTROPHILS # (AUTO) 3.9 10^3/uL (1.5-6.6); NEUTROPHILS % (AUTO) 55.8 %; PLT - PLATELET COUNT 304 10^3/uL (130-450); RED BLOOD COUNT 4.56 10^6/uL (4.20-5.40); RED CELL DISTRIBUTION WIDTH 11.9 % (12.0-15.0)
--- NOTE | 2019-05-01 12:25 | ANESTHESIA ---
Pre-Anesthesia VS, & Labs - Diagnosis pelvic pain, history of foreign body retained, history of endometriosis - Procedure diagnostic laparoscopy, diagnostic hysteroscopy Vital Signs: Temp Pulse Resp BP Pulse Ox 36.6 C 96 16 108/71 100 05/01/19 11:55 05/01/19 11:55 05/01/19 11:55 05/01/19 11:55 05/01/19 11:55 Height 5 ft 3 in Weight (kg) 60.3 kg Body Mass Index 22.1 - NPO >8 hours - Is Patient ?: No - Lab Results Current Lab Results: Laboratory Tests 05/01/19 12:11: WBC 7.0, RBC 4.56, Hgb 13.7, Hct 41.7, MCV 91.4, MCH 30.0, MCHC 32.9, RDW 11.9 L, Plt Count 304, MPV 10.3, Neut # (Auto) 3.9, Lymph # (Auto) 2.4, [place] # (Auto) 0.5, Eos # (Auto) 0.2, Baso # (Auto) 0.0, Absolute Nucleated RBC 0.00, Nucleated RBC % 0.0 Fish Bones: 05/01/19 12:11 Home Medications and Allergies Home Medications: Ambulatory Orders Etonogestrel/Ethinyl Estradiol [Nuvaring Vaginal Ring] 1 each VG ONCE 04/18/19 Fluticasone [Flonase] 1 sprays JA BID PRN 04/18/19 Montelukast [Singulair] 10 mg PO QPM 04/18/19 Multivitamin [Multiple Vitamins] 1 each PO DAILY 04/18/19 Ondansetron Odt [Zofran] 4 mg PO Q6H PRN 04/18/19 SUMAtriptan succinate [Sumatriptan Succinate] 50 mg PO ONCE PRN MDD 2 tabs 04/18/19 Cetirizine HCl [Zyrtec] 10 mg PO DAILY PRN 03/16/16 Albuterol Sulfate [Proair Hfa Inhaler] 1 - 2 puffs INH Q4H PRN 11/21/17 Amitriptyline [Elavil] 10 mg PO HS 11/21/17 Bupropion HCl [Wellbutrin Xl] 300 mg PO DAILY 11/21/17 Gabapentin 600 mg PO DAILY PM 11/21/17 Etonogestrel/Ethinyl Estradiol [Nuvaring Vaginal Ring] 1 each VG ONCE 04/18/19 Fluticasone [Flonase] 1 sprays JA BID PRN 04/18/19 Montelukast [Singulair] 10 mg PO QPM 04/18/19 Multivitamin [Multiple Vitamins] 1 each PO DAILY 04/18/19 Ondansetron Odt [Zofran] 4 mg PO Q6H PRN 04/18/19 SUMAtriptan succinate [Sumatriptan Succinate] 50 mg PO ONCE PRN MDD 2 tabs 04/18/19 Allergies/Adverse Reactions: Allergies Allergy/AdvReac Type Severity Reaction Status Date / Time No Known Drug Allergies Allergy Verified 03/25/19 14:40 Anes History & Medical History - Anesthetic History Anesthesia Complications: reports: Post-Operative Nausea/Vomiting - Medical History Cardiovascular: reports: None Pulmonary: reports: Asthma (controlled on medication) Gastrointestinal: reports: Diverticulitis, Ulcerative colitis Urinary: reports: None Neuro: reports: Migraines Musculoskeletal: reports: Osteoarthritis, Fatigue, Chronic back pain Endocrine/Autoimmune: reports: None Blood Disorders: reports: None Skin: reports: None Smoking Status: Never smoker Psychosocial: reports: Depression, Anxiety - Surgical History General: Colonoscopy Eyes Ears Nose Throat (EENT): Other Gynecologic: Endometrial ablation, Oophrectomy, Other Exam General: Alert, Oriented x3, Cooperative, No acute distress Dental: WNL Mouth Openin Fingerbreadth Neck Mobility: Normal Mallampati classification: II Thyromental Distance: greater than 6 cm Respiratory: Lungs clear, Normal breath sounds, No respiratory distress, No accessory muscle use Cardiovascular: Regular rate, Normal S1, Normal S2, No murmurs Mental/Cognitive Status: Alert/Oriented X3, Normal for patient Plan Anesthesia Type: General Consent for Procedure(s) Verified and Reviewed: Yes Code Status: Attempt Resuscitation ASA classification: 2-Mild systemic disease Is this case an emergency?: No
[2019-05-01] MEDS ORDERED: BUPIVACAINE 0.25% PF 30 ML VIAL ONE (12:38)
[2019-05-01] MEDS ORDERED: LIDOCAINE MPF 1%-EPI 1:200000 30 ML VIAL ONE (12:38)
[2019-05-01] MEDS ORDERED: LIDOCAINE 1%-EPI 1:100000 20 ML MDV SUBQ ONE ×2 (14:00)
[2019-05-01] MEDS ORDERED: SILVER NITRATE APPLICATOR TOP ONE ×2 (14:38→15:13)
--- NOTE | 2019-05-01 15:06 | OPERATIVE REPORT ---
Operative Report - General Planned Procedure: Diagnostic laparoscopy with possible ablation of endometriosis with possible salpingectomy, hysteroscopy D&C and possible myomectomy/polypectomy Pre-Op Diagnosis: Pelvic pain with history of perforation of left uterine horn Procedure Performed: Diagnostic laparoscopy and hysteroscopy D&C/myomectomy Post Op Diagnosis: Significant scarring of left uterine horn and submucosal fibroid - Procedure Note Primary Surgeon: Mirtha Hanna MD Anesthesia Provider: Agueda Potts CRNA Pathology: Uterine contents IV Fluids (mL): 1,300 (400 cc fluid deficit) Estimated Blood Loss (mL): 30 Urine Output (mL): 100 Indications: Severe pelvic pain. Please see clinic notes from 04/11/2019 regarding her long-standing history of chronic pelvic pain related to stage III endometriosis. She has had multiple d iagnostic laparoscopies with a LSO. She has failed medical management of various modalities. She had a Mirena IUD placed that migrated into her left cornua and has had chronic and worsening left-sided pelvic pain since then. Ultrasound and MRI have been unremarkable. Findings: Normal appearing right tube and ovary. Left tube and ovary were surgically absent. Left cornua had severe scarring and alteration in contour suggestive of prior resection of the cornua. Mobile uterus with boggy texture c/f adenomyosis. Pelvis and upper abdomen free of any endomtriotic implants. Peritoneum smooth and glistening. Normal appearing liver edge and appendix. Gallbladder slightly distended. No adhesive disease. Intratuterine cavity wihtout significant endometrium. Small fibroid at the anterior wall. Soft, boggy myometrium. Bulbous and friable cervix. Descensus that belies nulliparity; stage II uterine prolapse. Complications: None - Other Other Information/Narrative: Risks benefits and alternatives of the procedure were reviewed. Consent was again confirmed. Patient was brought to the operating room and underwent general anesthesia. She was placed in dorsal lithotomy position with legs resting in yellowfin stirrups. SCDs were in place and activated. Cefazolin 2 g IV was administered prior to start of procedure. She was prepped and draped in the usual sterile fashion. Surgical timeout was performed. Bimanual exam was performed. Sterile speculum was placed and an Menno uterine manipulator was placed. The base of the umbilicus was anesthetized with intradermal injection of 0.25% Marcaine. A 5 mm skin incision was made with a scalpel. A 5 mm blunt trocar was inserted under direct visualization using Metric Insightsiport. Once the port was confirmed to be placed intraperitoneally, the abdomen was insufflated to 15 mmHg with CO2 gas Exploration of the abdomen and pelvis was confirmed that no injury was sustained with placement of the trocar. The abdomen and pelvis was explored with findings as noted above. No further surgical manipulation was performed. Good hemostasis was noted. The abdomen was desufflated. All instruments were removed from the abdomen. Skin was closed with interrupted subcuticular stitches using 4-0 Monocryl. Dermabond was applied over the suture sites. Attention was then turned to the hysteroscopic portion of the procedure. The Menno manipulator was removed. Exam under anesthesia was performed. Speculum was placed in the vagina and the cervix was again visualized. Single-tooth tenaculum was placed at the anterior cervical lip. Paracervical block was administered using a total of 20 cc of 1% lidocaine with epinephrine was injected at the 4:00 and 8:00 positions lateral to the portio of the cervix. The cervical os was serially dilated with Hegar dilators to accommodate the caliber of the diagnostic hysteroscope. Uterus sounded to 8 cm. The hysteroscope was inserted and findings were noted as above. The hysteroscopic morcellator was inserted through the operative port. The submucosal fibroid was morcellated under direct visualization. Uterine cavity was smooth at close of the procedure. Hysteroscope was removed. Sharp curettage D&C was performed with sharp curettage. All instruments were removed from the uterus. Tenaculum was removed. Silver nitrate was applied to the tenaculum sites and were then noted to be hemostatic. All instruments were removed from the vagina. Procedure was well-tolerated without complication. Fluid deficit: 400
[2019-05-01] MEDS: fentaNYL 100 MCG/2 ML VIAL ONE ×2 (15:07→15:12)
[2019-05-01] MEDS ORDERED: oxyCODONE 5 MG TABLET ONE (16:12)
[2019-05-01 16:28] VITALS: BP 108/61
== END 2019-05-01 11:40 | disposition home or self-care (01) ==
LOC: SDS 11:39
PROVIDERS: ATTEND Obstetrics & Gynecology
PROC: 0UDB7ZX Extraction of Endometrium, Via Natural or Artificial Opening, Diagnostic (ICD-10-PCS; 2019-05-01)
PROC: 0UB98ZZ Excision of Uterus, Via Natural or Artificial Opening Endoscopic (ICD-10-PCS; principal; 2019-05-01 12:45)
PROC: 0WJJ4ZZ Inspection of Pelvic Cavity, Percutaneous Endoscopic Approach (ICD-10-PCS; 2019-05-01 12:45)
DX: T83.8 Other specified complications of genitourinary prosthetic devices, implants and grafts (principal); Y76.8 Miscellaneous obstetric and gynecological devices associated with adverse incidents, not elsewhere classified; Y84.8 Other medical procedures as the cause of abnormal reaction of the patient, or of later complication, without mention of misadventure at the time of the procedure; D25.0 Submucous leiomyoma of uterus; R10.2 Pelvic and perineal pain; J45.909 Unspecified asthma, uncomplicated; F32.9 Major depressive disorder, single episode, unspecified; F41.9 Anxiety disorder, unspecified; R53.82 Chronic fatigue, unspecified; G89.29 Other chronic pain; M54.9 Dorsalgia, unspecified; M19.90 Unspecified osteoarthritis, unspecified site; Z79.51 Long term (current) use of inhaled steroids; Z90.79 Acquired absence of other genital organ(s); Z90.721 Acquired absence of ovaries, unilateral; Z87.42 Personal history of other diseases of the female genital tract
CPT/HCPCS: 49320; 58120; 58561; 81025; 85025; A9270; J0131; J0690; J7120

== ENCOUNTER 2019-05-10 13:31 | Outpatient (CLI) | payer OTHER ==
[2019-05-10 13:59] LABS: BASOPHILS % (AUTO) 0.5 %; EOSINOPHILS # (AUTO) 0.2 10^3/uL (0.0-0.7); EOSINOPHILS % (AUTO) 2.2 %; HGB - HEMOGLOBIN 13.2 g/dL (12.0-16.0); LYMPHOCYTES # (AUTO) 2.2 10^3/uL (1.5-3.5); LYMPHOCYTES % (AUTO) 27.8 %; MEAN CORPUSCULAR HEMOGLOBIN 29.9 pg (27.0-31.0); MEAN CORPUSCULAR HGB CONC 32.4 g/dL (32.0-36.0); MEAN CORPUSCULAR VOLUME 92.3 fL (81.0-99.0); MONOCYTES # (AUTO) 0.6 10^3/uL (0.0-1.0); NEUTROPHILS # (AUTO) 4.8 10^3/uL (1.5-6.6); NEUTROPHILS % (AUTO) 60.7 %; PLT - PLATELET COUNT 316 10^3/uL (130-450); RED BLOOD COUNT 4.41 10^6/uL (4.20-5.40); RED CELL DISTRIBUTION WIDTH 11.5 % (12.0-15.0); WHITE BLOOD COUNT 7.9 x10^3/uL (4.8-10.8)
== END 2019-05-10 13:32 | disposition home or self-care (01) ==
LOC: LAB 13:31
PROVIDERS: ATTEND Obstetrics & Gynecology
DX: G89.18 Other acute postprocedural pain (principal)
CPT/HCPCS: 36415; 85025

== ENCOUNTER 2019-06-14 11:37 | Outpatient (CLI) | payer OTHER ==
[2019-06-14 11:46] LABS: BASOPHILS % (AUTO) 0.6 %; EOSINOPHILS # (AUTO) 0.2 10^3/uL (0.0-0.7); EOSINOPHILS % (AUTO) 2.9 %; HGB - HEMOGLOBIN 13.4 g/dL (12.0-16.0); LYMPHOCYTES # (AUTO) 1.9 10^3/uL (1.5-3.5); LYMPHOCYTES % (AUTO) 30.7 %; MEAN CORPUSCULAR HEMOGLOBIN 30.5 pg (27.0-31.0); MEAN CORPUSCULAR HGB CONC 32.6 g/dL (32.0-36.0); MEAN CORPUSCULAR VOLUME 93.4 fL (81.0-99.0); MEAN PLATELET VOLUME 9.9 fL (7.9-10.8); MONOCYTES # (AUTO) 0.5 10^3/uL (0.0-1.0); MONOCYTES % (AUTO) 8.1 %; NEUTROPHILS # (AUTO) 3.6 10^3/uL (1.5-6.6); NEUTROPHILS % (AUTO) 57.2 %; PLT - PLATELET COUNT 305 10^3/uL (130-450); RED CELL DISTRIBUTION WIDTH 11.8 % (12.0-15.0); WHITE BLOOD COUNT 6.3 x10^3/uL (4.8-10.8)
== END 2019-06-14 11:38 | disposition home or self-care (01) ==
LOC: LAB 11:37
PROVIDERS: ATTEND Obstetrics & Gynecology
DX: Z01.812 Encounter for preprocedural laboratory examination (principal); R10.2 Pelvic and perineal pain; N94.12 Deep dyspareunia; Z87.42 Personal history of other diseases of the female genital tract
CPT/HCPCS: 36415; 85025

== ENCOUNTER 2019-06-15 07:44 | Outpatient (CLI) | payer OTHER ==
--- NOTE | 2019-06-15 16:06 | Ultrasound Report ---
Reason: DIARRHEA, ABD PAIN RUQ Procedure Date: 06/15/2019 Accession Number: [id number] / [id number] Procedure: US - Abdomen Complete CPT Code: Final Report FULL RESULT: EXAM: ABDOMEN ULTRASOUND EXAM DATE: 06/15/2019 08:41 AM. CLINICAL HISTORY: DIARRHEA, ABD PAIN RUQ. COMPARISON: None. TECHNIQUE: Real-time scanning was performed with static images obtained. FINDINGS: Liver: Normal in size and echotexture. 16 cm. Main portal vein flow: Hepatopetal. A simple cyst in left lobe of liver measures 1.2 x 1 x 1.7 cm. Gallbladder: Normal. No stones, wall thickening, or sonographic Oh's sign. Biliary System: Common bile duct measures mm. No intrahepatic or extrahepatic ductal dilatation. Pancreas: Visualized portion is unremarkable. Kidneys: Right: 10.6 cm longitudinally. Normal. No contour-deforming mass, stones, or hydronephrosis. Left: 10.4 cm longitudinally. Normal. No contour-deforming mass, stones, or hydronephrosis. Spleen: 9.1 cm. Normal in size and echotexture. Aorta and Inferior Vena Cava: Unremarkable. Other: No free fluid in the abdomen. IMPRESSION: A simple cyst in left lobe of liver measures 1.2 x 1 x 1.7 cm. No other significant abnormality. RADIA
== END 2019-06-15 07:45 | disposition home or self-care (01) ==
LOC: DI 07:44
PROVIDERS: ATTEND Physician Assistant
DX: K76.89 Other specified diseases of liver (principal); R19.7 Diarrhea, unspecified; R10.11 Right upper quadrant pain
CPT/HCPCS: 76700

== ENCOUNTER 2019-06-17 10:05 | Day surgery (SDC) | payer OTHER ==
[2019-06-17 10:39] LABS: HCG UR QUAL NEGATIVE
[2019-06-17] MEDS ORDERED: SCOPOLAMINE PATCH TOP ONE (10:46)
[2019-06-17] MEDS ORDERED: LACTATED RINGERS 1,000 ML IV ONE ×2 (11:08→14:50)
--- NOTE | 2019-06-17 11:15 | ANESTHESIA ---
Pre-Anesthesia VS, & Labs - Diagnosis Pelvic pain - Procedure Total vaginal hysterectomy Vital Signs: Temp Pulse Resp BP Pulse Ox 36.8 C 84 16 113/73 98 06/17/19 10:40 06/17/19 10:40 06/17/19 10:40 06/17/19 10:40 06/17/19 10:40 Height 5 ft 3 in Weight (kg) 61 kg Body Mass Index 22.1 - NPO >8 hours, Other (Water at 0830 with pills) - Is Patient ?: No - Lab Results Current Lab Results: Laboratory Tests 06/17/19 10:57: POC Whole Bld Glucose 87 Lab results reviewed: Yes Home Medications and Allergies Home Medications: Ambulatory Orders Omeprazole 20 mg PO DAILY 06/14/19 Cetirizine HCl [Zyrtec] 10 mg PO DAILY PRN 03/16/16 Albuterol Sulfate [Proair Hfa Inhaler] 1 - 2 puffs INH Q4H PRN 11/21/17 Amitriptyline [Elavil] 10 mg PO HS 11/21/17 Bupropion HCl [Wellbutrin Xl] 300 mg PO DAILY 11/21/17 Gabapentin 600 mg PO DAILY PM 11/21/17 Etonogestrel/Ethinyl Estradiol [Nuvaring Vaginal Ring] 1 each VG ONCE 04/18/19 Fluticasone [Flonase] 1 sprays JA BID PRN 04/18/19 Montelukast [Singulair] 10 mg PO QPM 04/18/19 Multivitamin [Multiple Vitamins] 1 each PO DAILY 04/18/19 Ondansetron Odt [Zofran] 4 mg PO Q6H PRN 04/18/19 SUMAtriptan succinate [Sumatriptan Succinate] 50 mg PO ONCE PRN MDD 2 tabs 04/18/19 Omeprazole 20 mg PO DAILY 06/14/19 Allergies/Adverse Reactions: Allergies Allergy/AdvReac Type Severity Reaction Status Date / Time No Known Drug Allergies Allergy Verified 03/25/19 14:40 Anes History & Medical History - Anesthetic History Anesthesia Complications: reports: No previous complications Family history of Anesthesia Complications: Denies Family history of Malignant Hyperthermia: Denies - Medical History Cardiovascular: reports: None Pulmonary: reports: Asthma Gastrointestinal: reports: Diverticulitis, Ulcerative colitis Urinary: reports: None Neuro: reports: Migraines Musculoskeletal: reports: Osteoarthritis, Fatigue, Chronic back pain Endocrine/Autoimmune: reports: None Blood Disorders: reports: None Skin: reports: None Smoking Status: Never smoker Psychosocial: reports: No issues indicated - Surgical History General: Colonoscopy Eyes Ears Nose Throat (EENT): Other Gynecologic: Endometrial ablation, Dilation and currettage, Oophrectomy, Other Exam General: Alert, Oriented x3, Cooperative Dental: WNL, TMJ Mouth Opening: Greater than 4 Fingerbreadths Neck Mobility: Normal Mallampati classification: I Thyromental Distance: greater than 6 cm Respiratory: Lungs clear Cardiovascular: Regular rate Mental/Cognitive Status: Alert/Oriented X3 Cognitive Status: Within normal limits Plan Anesthesia Type: General Consent for Procedure(s) Verified and Reviewed: Yes Code Status: Attempt Resuscitation ASA classification: 2-Mild systemic disease Is this case an emergency?: No
[2019-06-17] MEDS ORDERED: LIDOCAINE 1%-EPI 1:100000 20 ML MDV ONE (12:48)
[2019-06-17] MEDS ORDERED: METHYLENE BLUE 0.5% 50 MG/10 ML AMPULE ONE (12:50)
[2019-06-17] MEDS ORDERED: PROPOFOL 200 MG/20 ML VIAL IVP ONE (13:09)
[2019-06-17] MEDS ORDERED: LIDOCAINE-MPF 2% 5 ML VIAL IM ONE (13:09)
[2019-06-17] MEDS ORDERED: ROCURONIUM 50 MG/5 ML VIAL IVP ONE (13:09)
[2019-06-17] MEDS ORDERED: DEXAMETHASONE 4 MG/ML VIAL IVP ONE (13:09)
[2019-06-17] MEDS ORDERED: fentaNYL 100 MCG/2 ML VIAL IVP ONE (13:09)
[2019-06-17] MEDS ORDERED: ONDANSETRON 4 MG/2 ML VIAL IVP ONE (13:09)
[2019-06-17] MEDS ORDERED: ACETAMINOPHEN 1,000 MG/100 ML 100 ML IV ONE (13:09)
[2019-06-17] MEDS ORDERED: MIDAZOLAM 2 MG/2 ML VIAL IVP ONE (13:09)
[2019-06-17] MEDS ORDERED: LIDOCAINE 1%-EPI 1:100000 30 ML MDV SUBQ ONE ×2 (13:45)
[2019-06-17] MEDS ORDERED: VASOPRESSIN 20 UNIT/ML VIAL IVP ONE (13:46)
[2019-06-17] MEDS ORDERED: METHYLENE BLUE 0.5% 50 MG/10 ML AMPULE IR ONE (13:47)
[2019-06-17] MEDS ORDERED: SODIUM CHLORIDE FLUSH 0.9% 10 ML SYRINGE IVP PRN ×2 (14:59→15:07)
[2019-06-17] MEDS ORDERED: LACTATED RINGERS 1,000 ML IV SCH (15:00)
[2019-06-17] MEDS ORDERED: SCOPOLAMINE PATCH TOP PRN (15:07)
[2019-06-17] MEDS ORDERED: ONDANSETRON ODT 4 MG TABLET TL PRN (15:07)
[2019-06-17] MEDS ORDERED: diphenhydrAMINE 25 MG CAPSULE PO PRN (15:07)
[2019-06-17] MEDS ORDERED: ONDANSETRON 4 MG/2 ML VIAL IVP PRN (15:07)
[2019-06-17] MEDS ORDERED: HYDROmorphone 1 MG/ML CARPUJECT ONE (15:16)
--- NOTE | 2019-06-17 15:25 | OPERATIVE REPORT ---
Operative Report - General Procedure Date: 06/17/19 Planned Procedure: Total vaginal hysterectomy and right sided salpingectomy Pre-Op Diagnosis: Pelvic pain, endometriosis, dyspareunia Procedure Performed: Total vaginal hysterectomy and right sided salpingectomy Post Op Diagnosis: same - Procedure Note Primary Surgeon: Mirtha Hanna MD Secondary Surgeon: Eun Begum MD Anesthesia Provider: Alex Burden CRNA/ Cinthia Nicholson CRNA Anesthesia Technique: General ET tube Pathology: uterus and right fallopian tube IV Fluids (mL): 500 Estimated Blood Loss (mL): 20 Urine Output (mL): 225 Findings: Boggy uterus with significant uterine descension. Normal right tube and ovary. Left tube and ovary surgically absent Complications: None - Other Other Information/Narrative: Consent was again confirmed. The patient was brought to the OR and underweight general anesthesia. She was placed in dorsal lithotomy with legs supported in yellowfin stirrups. Bimanual exam was performed. She was then prepared and draped in the usual sterile fashion. Souza catheter was in place and backfilled with 50 cc of dilute methyline blue and clamped. SCDs were confirmed to be in place and operating. A surgical time out was performed. Administration of 2g IV cefazolin was confirmed. A weighted speculum was placed in the posterior vaginal vault. The cervix was grasped with a a double toothed tenaculum clamp on both its anterior and posterior lips. A paracervical block was placed by injecting 20 cc of 1% lidocaine with epinephrine at 4 and 8:00 immediately external to the cervical portio. A total of 30 cc of 20mg vasopressin/100 cc was injected in a circumferential direction around the cervix. With downward traction, we made a circumferential incision of the vaginal mucosa with the bovie cautery. This allowed dissection and entrance into the anterior space. The posterior cul-de-sac was entered sharply in the same manner. A long necked weighted speculum was then placed in the vagina through the posterior space. The uterosacral ligaments were clamped with Michael clamps and ligated with #0 Vicryl suture bilaterally. The cervicovesical space was then created by both blunt and sharp dissection. At no point was there spillage of methylene blue. A moistened sponge stick was placed in the posterior cul de sac to retract the bowel and patient was placed in Trendelenburg position. A laparoscopic Ligasure bipolar device was then used to seal and ligate each pedicle. The uterosacral ligaments were suture ligated as above. The cardinal ligaments, uterine vessels, broad ligaments, and utero-ovarian pedicles were sealed and ligated with the Ligasure device. The tubes and ovaries were visualized on the right, were surgically absent on the left. . The remaining fallopian tube (right) was transected from the uterine body and the uterine body was removed. The fallopian tube was then grasped and elevated with Winnfield clamps. The underlying mesosalpinx was sealed and transected in order to remove the fallopian tubes bilaterally. Ovaries were inspected as with findings noted above. We then removed the weighted duckbill speculum and placed a regular speculum in the vaginal vault and visualized the entire area. We inspected for hemostasis, and this was secured. The peritoneum was closed with 2-0 Vicryl with a running suture. The uterosacral ligaments were then fixed to the anterior and posterior vaginal cuff margins to aid in vaginal support. The vaginal cuff was then closed with interrupted figure of 8 sutures using 0-Vicryl. Hemostasis was excellent. The vaginal vault was cleared of debris. The sponge count was correct times 2 at this time. A Souza catheter was then unclamped. The patients procedure was terminated. She was sent to the Recovery Room in good condition. Dr. Begum assisted with retraction, assistance with suturing, and sharing of surgical insight.
[2019-06-17] MEDS ORDERED: IBUPROFEN 600 MG TABLET PO SCH (16:00)
[2019-06-17 16:29] LABS: BASOPHILS % (AUTO) 0.3 %; EOSINOPHILS % (AUTO) 0.2 %; HGB - HEMOGLOBIN 12.5 g/dL (12.0-16.0); LYMPHOCYTES # (AUTO) 0.7 10^3/uL (1.5-3.5); LYMPHOCYTES % (AUTO) 7.7 %; MEAN CORPUSCULAR HEMOGLOBIN 30.3 pg (27.0-31.0); MEAN CORPUSCULAR HGB CONC 33.1 g/dL (32.0-36.0); MEAN CORPUSCULAR VOLUME 91.5 fL (81.0-99.0); MEAN PLATELET VOLUME 10.1 fL (7.9-10.8); MONOCYTES # (AUTO) 0.1 10^3/uL (0.0-1.0); MONOCYTES % (AUTO) 1.1 %; NEUTROPHILS # (AUTO) 8.5 10^3/uL (1.5-6.6); NEUTROPHILS % (AUTO) 90.3 %; PLT - PLATELET COUNT 252 10^3/uL (130-450); RED BLOOD COUNT 4.13 10^6/uL (4.20-5.40); RED CELL DISTRIBUTION WIDTH 11.6 % (12.0-15.0); WHITE BLOOD COUNT 9.4 x10^3/uL (4.8-10.8)
--- NOTE | 2019-06-17 17:09 | PROVIDER PROGRESS NOTE ---
Subjective - Prog Note Date Prog Note Date: 06/17/19 Prog Note Time: 17:07 - Subjective Subjective: Has pain rated 3-4/10 in the fold of the left lower groin (in area where skin had reddened while in dorsal lithotomy). Descirbed as dep, burning pain. No o ther significant pain and no N/V. Has echavarria in place. No back or flank pain Objective - Vital Signs/Intake & Output Vital Signs: Vital Signs x48h Temp Pulse Pulse Resp BP BP Pulse Ox 06/17/19 16:00 97.5 F L 81 14 125/71 97 06/17/19 15:44 97.5 F L 89 14 131/64 H 100 06/17/19 15:35 100.2 F H 85 14 129/72 98 06/17/19 15:30 100.2 F H 87 14 128/86 H 100 06/17/19 15:26 100.2 F H 93 14 100 06/17/19 15:20 100.2 F H 93 12 126/75 100 06/17/19 15:15 100.6 F H 88 14 115/85 H 100 06/17/19 15:08 99.9 F H 95 14 123/67 100 06/17/19 15:02 99.9 F H 87 124 H 124/70 100 06/17/19 14:58 99.9 F H 86 14 122/77 100 06/17/19 14:52 99.9 F H 92 14 128/72 100 06/17/19 10:40 98.2 F 84 16 113/73 98 Intake & Output: Intake & Output 06/14/19 06/15/19 06/16/19 06/17/19 23:59 23:59 23:59 23:59 Intake Total 900 Output Total 595 Balance 305 - Objective General Appearance: positive: No acute distress Respiratory: positive: Chest non-tender, No respiratory distress Cardiovascular: positive: Regular rate & rhythm Abdomen: positive: Other (Soft and ND. Mild TPP in LLQ but otherwise NT) Back: positive: Other (No back pain of CVA tenderness) Skin: positive: Other (mildly hyperextensible) Extremities: positive: Non-tender, No pedal edema Neurologic/Psychiatric: positive: Oriented x3 - Lab Results Fish Bones: 06/17/19 16:24 Other Labs: Lab Results x24hrs 06/17/19 06/17/19 06/17/19 Range/Units 16:24 10:57 10:30 WBC 9.4 (4.8-10.8) x10^3/uL RBC 4.13 L (4.20-5.40) 10^6/uL Hgb 12.5 (12.0-16.0) g/dL Hct 37.8 (37.0-47.0) % MCV 91.5 (81.0-99.0) fL MCH 30.3 (27.0-31.0) pg MCHC 33.1 (32.0-36.0) g/dL RDW 11.6 L (12.0-15.0) % Plt Count 252 (130-450) 10^3/uL MPV 10.1 (7.9-10.8) fL Neut # (Auto) 8.5 H (1.5-6.6) 10^3/uL Lymph # (Auto) 0.7 L (1.5-3.5) 10^3/uL [place] # (Auto) 0.1 (0.0-1.0) 10^3/uL Eos # (Auto) 0.0 (0.0-0.7) 10^3/uL Baso # (Auto) 0.0 (0.0-0.1) 10^3/uL Absolute Nucleated RBC 0.00 x10^3/uL Nucleated RBC % 0.0 /100WBC POC Whole Bld Glucose 87 (70 - 100) mg/dL Ur Specific [place] 1.020 (1.002-1.030) Urine HCG, Qual NEGATIVE - Other Results/Comments Other Results/Comments: POD#0 s/p TVH/RS Routine postop care Excellent UOP Encourage ambulation Reviewed possibility of removing echavarria if ambulatory. Ok to leav ein until am ADAT Transition to oral meds as able Anticipate DC home in am
[2019-06-17] MEDS: oxyCODONE 5 MG TABLET PO PRN ×2 (17:17→21:19)
[2019-06-17] MEDS: ACETAMINOPHEN 500 MG TABLET PO SCH (17:17)
[2019-06-17] MEDS: KETOROLAC 30 MG/ML VIAL IVP PRN (18:06)
[2019-06-17] MEDS: SODIUM CHLORIDE FLUSH 0.9% 10 ML SYRINGE IVP SCH ×2 (18:46)
[2019-06-17] MEDS ORDERED: GABAPENTIN 400 MG CAPSULE PO SCH (21:00)
[2019-06-17] MEDS ORDERED: AMITRIPTYLINE 25 MG TABLET PO SCH (21:00)
[2019-06-17] MEDS ORDERED: GABAPENTIN 300 MG CAPSULE PO SCH (21:00)
[2019-06-17] MEDS: DOCUSATE SODIUM 100 MG CAPSULE PO SCH (21:03)
[2019-06-17] MEDS: LACTATED RINGERS 1,000 ML IV SCH (21:04)
[2019-06-17] MEDS: SIMETHICONE CHEW 80 MG TABLET PO SCH (21:19)
[2019-06-18] MEDS: KETOROLAC 30 MG/ML VIAL IVP PRN ×2 (00:51→09:59)
[2019-06-18] MEDS: ACETAMINOPHEN 500 MG TABLET PO SCH ×2 (00:51→08:29)
[2019-06-18] MEDS: SODIUM CHLORIDE FLUSH 0.9% 10 ML SYRINGE IVP SCH ×4 (01:28→09:45)
[2019-06-18] MEDS: oxyCODONE 5 MG TABLET PO PRN ×2 (06:10→10:38)
[2019-06-18] MEDS: SIMETHICONE CHEW 80 MG TABLET PO SCH ×2 (06:10→06:14)
[2019-06-18] MEDS ORDERED: PANTOPRAZOLE 40 MG TABLET PO SCH (07:00)
[2019-06-18] MEDS: DOCUSATE SODIUM 100 MG CAPSULE PO SCH (08:29)
[2019-06-18] MEDS ORDERED: ENOXAPARIN 40 MG/0.4 ML SYRINGE SUBQ SCH (09:00)
[2019-06-18 09:51] VITALS: BP 111/57
[2019-06-18] MEDS: LACTATED RINGERS 1,000 ML IV SCH (10:38)
--- NOTE | 2019-06-18 11:55 | PROVIDER PROGRESS NOTE ---
Subjective - Prog Note Date Prog Note Date: 06/18/19 Prog Note Time: 11:53 - Subjective Subjective: Patient is postop day 1 status post TVH and right sided BS. Patient has been up and ambulating, tolerating p.o., voiding, and pain has been relatively well managed with pain medications. She has some left-sided pain in the groin. She rates it currently 2 out of 10. Otherwise no pain complaints. Has had minimal spotting after voiding. After extensive to get discussion regarding etiology of pain, she feels she is ready to be discharged home. Objective - Vital Signs/Intake & Output Vital Signs: Vital Signs x48h Temp Pulse Pulse Resp BP BP Pulse Ox 06/18/19 09:50 98.2 F 67 67 20 111/57 L 111/57 L 99 06/18/19 06:44 100/50 L 06/18/19 05:35 98.1 F 78 18 99/47 L 98 Intake & Output: Intake & Output 06/15/19 06/16/19 06/17/19 06/18/19 23:59 23:59 23:59 23:59 Intake Total 2260 1570 Output Total 1520 1015 Balance 740 555 - Objective General Appearance: positive: No acute distress Eyes Bilateral: positive: Normal inspection Neck: positive: Nml inspection Respiratory: positive: No respiratory distress Cardiovascular: positive: Regular rate & rhythm Abdomen: positive: Non-tender, Other (Mild TTP in LLQ) Back: positive: Other (No CVA tenderness) Skin: positive: Color nml Extremities: positive: Non-tender, No pedal edema Neurologic/Psychiatric: positive: Oriented x3 - Lab Results Fish Bones: 06/17/19 16:24 Other Labs: Lab Results x24hrs 06/17/19 Range/Units 16:24 WBC 9.4 (4.8-10.8) x10^3/uL RBC 4.13 L (4.20-5.40) 10^6/uL Hgb 12.5 (12.0-16.0) g/dL Hct 37.8 (37.0-47.0) % MCV 91.5 (81.0-99.0) fL MCH 30.3 (27.0-31.0) pg MCHC 33.1 (32.0-36.0) g/dL RDW 11.6 L (12.0-15.0) % Plt Count 252 (130-450) 10^3/uL MPV 10.1 (7.9-10.8) fL Neut # (Auto) 8.5 H (1.5-6.6) 10^3/uL Lymph # (Auto) 0.7 L (1.5-3.5) 10^3/uL [place] # (Auto) 0.1 (0.0-1.0) 10^3/uL Eos # (Auto) 0.0 (0.0-0.7) 10^3/uL Baso # (Auto) 0.0 (0.0-0.1) 10^3/uL Absolute Nucleated RBC 0.00 x10^3/uL Nucleated RBC % 0.0 /100WBC Assessment/Plan - Problem List (1) S/P vaginal hysterectomy Impression: POD#1: Meeting goals for discharge UOP has been excellent Reviewed warning signs Discharged to home on ibuprofen, acetaminophen, oxycodone, and will increase home dose of gabapenting to 300 mg po TID Routine DC isnstructions given
[2019-06-23] MEDS ORDERED: IBUPROFEN 600 MG TABLET PO SCH (19:00)
== END 2019-06-18 12:42 | disposition home or self-care (01) ==
LOC: SDS 10:05 → MS3 15:38 → SDS 06-18 12:42
PROVIDERS: ATTEND Obstetrics & Gynecology
PROC: 0UT57ZZ Resection of Right Fallopian Tube, Via Natural or Artificial Opening (ICD-10-PCS; 2019-06-17)
PROC: 0UT97ZZ Resection of Uterus, Via Natural or Artificial Opening (ICD-10-PCS; principal; 2019-06-17 11:45)
DX: N80.0 Endometriosis of uterus (principal); D25.2 Subserosal leiomyoma of uterus; N72 Inflammatory disease of cervix uteri; N94.12 Deep dyspareunia; G89.29 Other chronic pain; J45.909 Unspecified asthma, uncomplicated; Z90.721 Acquired absence of ovaries, unilateral; Z90.79 Acquired absence of other genital organ(s); Z79.899 Other long term (current) drug therapy; Z87.19 Personal history of other diseases of the digestive system
CPT/HCPCS: 36415; 58262; 81025; 85025; A9270; J0131; J0690; J1170; J1650; J3490; J7120

== ENCOUNTER 2019-06-18 21:30 | Emergency (ER) | payer OTHER ==
[2019-06-18] MEDS ORDERED: PROMETHAZINE INJ 25 MG in SODIUM CHLORIDE 0.9% 50 ML IV STA (22:00)
[2019-06-18] MEDS ORDERED: fentaNYL 100 MCG/2 ML VIAL IVP STA (22:01)
--- NOTE | 2019-06-18 22:08 | HISTORY & PHYSICAL EXAMINATION ---
Chief Complaint - Chief Complaint Chief Complaint: Left sided abdominal and flank pain History of Present Illness - History of Present Illness HPI Comment/Other: 44yo POD 1 from uncomplicated TVH and R salpingectomy presents with c/o progressive left groin pain that radiates upward toward left flank. Pt has been increasing since DC this afternoon despite appropriate pain meds at home. Denies vomiting but does have nausea. No BM since surgery. Denies fever, dysuria and vaginal bleeding. 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 - Substance History Dependence: Experiences withdrawal or developed tolerances: NONE - POLST Patient has POLST: No Meds/Allgy - Home Medications Home Medications: Ambulatory Orders Medication Instructions Recorded Confirmed Cetirizine HCl [Zyrtec] 10 mg PO DAILY PRN 03/16/16 06/17/19 Albuterol Sulfate [Proair Hfa 1 - 2 puffs INH Q4H PRN 11/21/17 06/17/19 Inhaler] Amitriptyline [Elavil] 10 mg PO HS 11/21/17 06/17/19 Bupropion HCl [Wellbutrin Xl] 300 mg PO DAILY 11/21/17 06/17/19 Gabapentin 600 mg PO DAILY PM 11/21/17 06/18/19 Fluticasone [Flonase] 1 sprays JA BID PRN 04/18/19 06/18/19 Montelukast [Singulair] 10 mg PO QPM 04/18/19 06/18/19 Multivitamin [Multiple Vitamins] 1 each PO DAILY 04/18/19 06/18/19 Ondansetron Odt [Zofran] 4 mg PO Q6H PRN 04/18/19 06/18/19 SUMAtriptan succinate [Sumatriptan 50 mg PO ONCE PRN MDD 2 tabs 04/18/19 06/18/19 Succinate] Omeprazole 20 mg PO DAILY 06/14/19 06/18/19 - Allergies Allergies/Adverse Reactions: Allergies Allergy/AdvReac Type Severity Reaction Status Date / Time chlorhexidine Allergy Rash Verified 06/18/19 21:48 Review of Systems - All Other Systems All Other Systems: reports: Other (As noted above. Otherwise negative) Exam - Vital Signs Vital Signs: Vital Signs x48h Temp Pulse Resp BP Pulse Ox 06/18/19 21:42 97.9 F 78 16 143/81 H 100 - Physical Exam General Appearance: positive: Mild distress Respiratory: positive: No respiratory distress, Breath sounds nml Cardiovascular: positive: Regular rate & rhythm, Tachycardia Abdomen: positive: No distention, Tenderness (Tenderness to palpation difussely, L>R. No right flank tenderness, moderate on left with voluntary guarding VE/ Scant dark blood. Cuff normal appearing, intact. Bimanual limited by tenderness. No gross mass appreciated.), Guarding Conclusion/Plan - Other Other Results/Comments: 44yo POD 1 from [facility] with pain suspicious for either retroperitoneal hematoma or ureteral obstruction. Plan CT IVP, CBC, CMP, urine creat and UA. IV meds for pain and nausea. Quite anxious; will opt for phenergan secondary to its anxiolytic properties. Proceed based on result.
[2019-06-18] MEDS ORDERED: IOVERSOL 320 100 ML VIAL IVP ONE ×2 (22:12→23:32)
[2019-06-18] MEDS ORDERED: PROMETHAZINE 25 MG/1 ML VIAL ONE (22:14)
[2019-06-18] MEDS ORDERED: fentaNYL 100 MCG/2 ML VIAL ONE (22:15)
[2019-06-18 22:25] LABS: HGB - HEMOGLOBIN 11.5 g/dL (12.0-16.0); MEAN CORPUSCULAR HEMOGLOBIN 30.1 pg (27.0-31.0); MEAN PLATELET VOLUME 10.3 fL (7.9-10.8); RED BLOOD COUNT 3.82 10^6/uL (4.20-5.40); RED CELL DISTRIBUTION WIDTH 11.9 % (12.0-15.0); WHITE BLOOD COUNT 7.6 x10^3/uL (4.8-10.8)
[2019-06-18 22:38] LABS: ALBUMIN/GLOBULIN RATIO 1.1 (1.0-2.2); BILIRUBIN,TOTAL 0.4 mg/dL (0.2-1.0); CREATININE 0.8 mg/dL (0.4-1.0); TOTAL PROTEIN 5.7 g/dL (6.7-8.2)
[2019-06-18 22:56] LABS: BILIRUBIN,URINE NEGATIVE (NEGATIVE); GLUCOSE, URINE (UA) NEGATIVE (NEGATIVE); KETONES,URINE (UA) NEGATIVE (NEGATIVE); LEUKOCYTE ESTERASE, URINE NEGATIVE (NEGATIVE); NITRITE,URINE NEGATIVE (NEGATIVE); OCCULT BLOOD,URINE TRACE-INTA (NEGATIVE); PROTEIN,URINE NEGATIVE (NEGATIVE); UROBILINOGEN,URINE 0.2 (NORMAL) E.U./dL (NORMAL)
[2019-06-18 22:58] LABS: CLARITY,URINE CLEAR (CLEAR)
[2019-06-18 23:05] LABS: BACTERIA,URINE Rare /HPF (None Seen); RBC,URINE 0-5 /HPF (0-5); SQUAMOUS EPITHELIAL CELL,UR FEW Squamous (<= Few)
--- NOTE | 2019-06-18 23:51 | CT Report ---
Reason: Post op hysterectomy with progressive L flank pain Procedure Date: 06/18/2019 Accession Number: [id number] / [id number] Procedure: CT - IVP CPT Code: Final Report FULL RESULT: EXAM: CT ABDOMEN AND PELVIS WITHOUT AND WITH CONTRAST (CT IVP) EXAM DATE: 06/18/2019 11:33 PM. CLINICAL HISTORY: Post op hysterectomy with progressive L flank pain. COMPARISONS: ABDOMEN/PELVIS W/ 01/26/2019 8:48 PM. TECHNIQUE: Routine helical imaging was performed through the kidneys, ureters and bladder in the precontrast and delayed phases. IV Contrast: OPTI 320 100ML. Reconstructions: Coronal and sagittal. In accordance with CT protocol optimization, one or more of the following dose reduction techniques were utilized for this exam: automated exposure control, adjustment of mA and/or KV based on patient size, or use of iterative reconstructive technique. FINDINGS: Lung Bases: Unremarkable. Liver: Left lobe cyst measuring 1.4 cm. Gallbladder/Bile Ducts: Unremarkable. Spleen: Normal. Pancreas: Normal. Adrenal Glands: Normal. Kidneys/Bladder: Right Kidney/Ureter: No renal or ureteral stones. No hydronephrosis or hydroureter. No masses. Left Kidney/Ureter: No renal or ureteral stones. No hydronephrosis or hydroureter. No masses. Bladder: No stones. No wall thickening or mass. Very small bubble of air in the urinary bladder. Peritoneal Cavity/Bowel: No bowel obstruction seen. Tiny amount of extraluminal air in the pelvis consistent with recent surgery. No free fluid. No diverticulitis. No lymphadenopathy. Appendix appears normal. Pelvic Organs: Uterus is absent. Vasculature: No aneurysms or other significant abnormality. Bones: No significant abnormality. Other: None. IMPRESSION: 1. No urinary tract masses, stones, or obstruction. 2. Very small bubble of air in the urinary bladder, presumably due to prior catheterization. 3. Very small amount of extraluminal air in the pelvis consistent with recent surgery. RADIA
[2019-06-18 23:56] VITALS: BP 116/64
[2019-06-19] MEDS ORDERED: KETOROLAC 30 MG/ML VIAL IVP STA (00:03)
--- NOTE | 2019-06-19 00:07 | PROVIDER PROGRESS NOTE ---
Subjective - Prog Note Date Prog Note Date: 06/19/19 Prog Note Time: 00:05 - Subjective Subjective: Labs and CT all normal. No evidence of intraabdominal or retroperitoneal bleeding, no free fluid. No ureteral injury or obstruction. Improved with fentanyl and phenergan. VSS afeb Will give additional dose toredol. Then DC home. Precautions discussed. F/U as scheduled Objective - Vital Signs/Intake & Output Vital Signs: Vital Signs x48h Temp Pulse Resp BP Pulse Ox 06/18/19 23:56 98.4 F 73 18 116/64 100 06/18/19 21:42 97.9 F 78 16 143/81 H 100 - Lab Results Fish Bones: 06/18/19 22:00 06/18/19 22:00 Other Labs: Lab Results x24hrs 06/18/19 06/18/19 06/18/19 Range/Units 22:50 22:50 22:00 WBC (4.8-10.8) x10^3/uL RBC (4.20-5.40) 10^6/uL Hgb (12.0-16.0) g/dL Hct (37.0-47.0) % MCV (81.0-99.0) fL MCH (27.0-31.0) pg MCHC (32.0-36.0) g/dL RDW (12.0-15.0) % Plt Count (130-450) 10^3/uL MPV (7.9-10.8) fL Sodium 140 (135-145) mmol/L Potassium 3.7 (3.5-5.0) mmol/L Chloride 108 (101-111) mmol/L Carbon Dioxide 26 (21-32) mmol/L Anion Gap 6.0 (6-13) BUN 9 (6-20) mg/dL Creatinine 0.8 (0.4-1.0) mg/dL Estimated GFR (MDRD) 79 L (>89) Glucose 87 (70-100) mg/dL Calcium 8.0 L (8.5-10.3) mg/dL Total Bilirubin 0.4 (0.2-1.0) mg/dL AST 18 (10-42) IU/L ALT 12 (10-60) IU/L Alkaline Phosphatase 72 (42-121) IU/L Total Protein 5.7 L (6.7-8.2) g/dL Albumin 3.0 L (3.2-5.5) g/dL Globulin 2.7 (2.1-4.2) g/dL Albumin/Globulin Ratio 1.1 (1.0-2.2) Urine Color YELLOW Urine Clarity CLEAR (CLEAR) Urine pH 6.0 (5.0-7.5) PH Ur Specific [place] <=1.005 (1.002-1.030) Urine Protein NEGATIVE (NEGATIVE) mg/dL Urine Glucose (UA) NEGATIVE (NEGATIVE) mg/dL Urine Ketones NEGATIVE (NEGATIVE) mg/dL Urine Occult Blood TRACE-INTA (NEGATIVE) Urine Nitrite NEGATIVE (NEGATIVE) Urine Bilirubin NEGATIVE (NEGATIVE) Urine Urobilinogen 0.2 (NORMAL) (NORMAL) E.U./dL Ur Leukocyte Esterase NEGATIVE (NEGATIVE) Urine RBC 0-5 (0-5) /HPF Urine WBC 0-3 (0-5) /HPF Ur Squamous Epith Cells FEW Squamous (<= Few) Urine Bacteria Rare (None Seen) /HPF Urine Culture Comments NOT INDICATED Urine Creatinine 20.5 mg/dL 06/18/19 Range/Units 22:00 WBC 7.6 (4.8-10.8) x10^3/uL RBC 3.82 L (4.20-5.40) 10^6/uL Hgb 11.5 L (12.0-16.0) g/dL Hct 35.9 L (37.0-47.0) % MCV 94.0 (81.0-99.0) fL MCH 30.1 (27.0-31.0) pg MCHC 32.0 (32.0-36.0) g/dL RDW 11.9 L (12.0-15.0) % Plt Count 236 (130-450) 10^3/uL MPV 10.3 (7.9-10.8) fL Sodium (135-145) mmol/L Potassium (3.5-5.0) mmol/L Chloride (101-111) mmol/L Carbon Dioxide (21-32) mmol/L Anion Gap (6-13) BUN (6-20) mg/dL Creatinine (0.4-1.0) mg/dL Estimated GFR (MDRD) (>89) Glucose (70-100) mg/dL Calcium (8.5-10.3) mg/dL Total Bilirubin (0.2-1.0) mg/dL AST (10-42) IU/L ALT (10-60) IU/L Alkaline Phosphatase (42-121) IU/L Total Protein (6.7-8.2) g/dL Albumin (3.2-5.5) g/dL Globulin (2.1-4.2) g/dL Albumin/Globulin Ratio (1.0-2.2) Urine Color Urine Clarity (CLEAR) Urine pH (5.0-7.5) PH Ur Specific [place] (1.002-1.030) Urine Protein (NEGATIVE) mg/dL Urine Glucose (UA) (NEGATIVE) mg/dL Urine Ketones (NEGATIVE) mg/dL Urine Occult Blood (NEGATIVE) Urine Nitrite (NEGATIVE) Urine Bilirubin (NEGATIVE) Urine Urobilinogen (NORMAL) E.U./dL Ur Leukocyte Esterase (NEGATIVE) Urine RBC (0-5) /HPF Urine WBC (0-5) /HPF Ur Squamous Epith Cells (<= Few) Urine Bacteria (None Seen) /HPF Urine Culture Comments Urine Creatinine mg/dL
[2019-06-19] MEDS ORDERED: KETOROLAC 30 MG/ML VIAL ONE (00:14)
--- NOTE | 2019-06-19 00:31 | ED Physician Documentation ---
PD HPI ABD PAIN - Stated complaint Stated Complaint: POST OP PX - Chief complaint Chief Complaint: Abd Pain - History obtained from History obtained from: Patient, Family - History of Present Illness Timing - onset: Today Timing - duration: Hours Timing - details: Gradual onset, Still present Quality: Sharp, Pain Location: LLQ Radiation: Left flank Improved by: Laying still Worsened by: Moving Associated symptoms: Nausea Similar symptoms before: Has not had sx before Recently seen: Surgery - Additional information Additional information: 44-year-old female has had a vaginal hysterectomy and oophorectomy and was discharged from the hospital this morning. She returns to the emergency department this evening with intolerable left-sided pain. Pain is out of proportion to what is expected and the surgeon is concerned about the possibility of obstruction of the ureter. Review of Systems Constitutional: denies: Fever Eyes: denies: Decreased vision Ears: denies: Ear pain Nose: denies: Congestion Throat: denies: Sore throat Respiratory: denies: Cough GI: denies: Vomiting PD PAST MEDICAL HISTORY - Past Medical History Past Medical History: Yes Cardiovascular: None Respiratory: None, Asthma Neuro: Migraines Endocrine/Autoimmune: None GI: Diverticulitis, Ulcerative colitis ROOFER GYPSUM: Endometriosis : None HEENT: None Psych: Depression, Anxiety Musculoskeletal: Osteoarthritis, Fatigue, Chronic back pain Derm: None - Past Surgical History Past Surgical History: Yes General: Colonoscopy /ROOFER GYPSUM: Endometrial ablation, Dilation and currettage, Hysterectomy, Oophrectomy, Other (H/O diagnostic laparoscopy) HEENT: Other - Present Medications Home Medications: Ambulatory Orders Medication Instructions Recorded Confirmed Cetirizine HCl [Zyrtec] 10 mg PO DAILY PRN 03/16/16 06/17/19 Albuterol Sulfate [Proair Hfa 1 - 2 puffs INH Q4H PRN 11/21/17 06/17/19 Inhaler] Amitriptyline [Elavil] 10 mg PO HS 11/21/17 06/17/19 Bupropion HCl [Wellbutrin Xl] 300 mg PO DAILY 11/21/17 06/17/19 Gabapentin 600 mg PO DAILY PM 11/21/17 06/18/19 Fluticasone [Flonase] 1 sprays JA BID PRN 04/18/19 06/18/19 Montelukast [Singulair] 10 mg PO QPM 04/18/19 06/18/19 Multivitamin [Multiple Vitamins] 1 each PO DAILY 04/18/19 06/18/19 Ondansetron Odt [Zofran] 4 mg PO Q6H PRN 04/18/19 06/18/19 SUMAtriptan succinate [Sumatriptan 50 mg PO ONCE PRN MDD 2 tabs 04/18/19 06/18/19 Succinate] Omeprazole 20 mg PO DAILY 06/14/19 06/18/19 - Allergies Allergies/Adverse Reactions: Allergies Allergy/AdvReac Type Severity Reaction Status Date / Time chlorhexidine Allergy Rash Verified 06/18/19 21:48 - Social History Does the pt smoke?: No Smoking Status: Never smoker Does the pt drink ETOH?: No Does the pt have substance abuse?: No - Immunizations Immunizations are current?: Yes - POLST Patient has POLST: No PD ED PE NORMAL - Vitals Vital signs reviewed: Yes (Hypertensive mild) - General General: Alert and oriented X 3, No acute distress, Well developed/nourished - HEENT HEENT: Atraumatic, PERRL, EOMI - Neck Neck: Supple, no meningeal sign - Respiratory Respiratory: No respiratory distress - Derm Derm: Normal color, Warm and dry, No rash - Extremities Extremities: No deformity, No edema - Neuro Neuro: No motor deficit, No sensory deficit Eye Opening: Spontaneous Motor: Obeys Commands Verbal: Oriented GCS Score: 15 - Psych Psych: Normal mood, Normal affect Results - Vitals Vitals: Vital Signs - 24 hr 06/18/19 06/18/19 21:42 23:56 Temperature 36.6 C 36.9 C Heart Rate 78 73 Respiratory 16 18 Rate Blood Pressure 143/81 H 116/64 O2 Saturation 100 100 Oxygen O2 Source Room air - Labs Labs: Laboratory Tests 06/18/19 06/18/19 06/18/19 22:00 22:00 22:50 WBC 7.6 RBC 3.82 L Hgb 11.5 L Hct 35.9 L MCV 94.0 MCH 30.1 MCHC 32.0 RDW 11.9 L Plt Count 236 MPV 10.3 Sodium 140 Potassium 3.7 Chloride 108 Carbon Dioxide 26 Anion Gap 6.0 BUN 9 Creatinine 0.8 Estimated GFR (MDRD) 79 L Glucose 87 Calcium 8.0 L Total Bilirubin 0.4 AST 18 ALT 12 Alkaline Phosphatase 72 Total Protein 5.7 L Albumin 3.0 L Globulin 2.7 Albumin/Globulin Ratio 1.1 Urine Color Urine Clarity Urine pH Ur Specific [place] Urine Protein Urine Glucose (UA) Urine Ketones Urine Occult Blood Urine Nitrite Urine Bilirubin Urine Urobilinogen Ur Leukocyte Esterase Urine RBC Urine WBC Ur Squamous Epith Cells Urine Bacteria Urine Culture Comments Urine Creatinine 20.5 06/18/19 22:50 WBC RBC Hgb Hct MCV MCH MCHC RDW Plt Count MPV Sodium Potassium Chloride Carbon Dioxide Anion Gap BUN Creatinine Estimated GFR (MDRD) Glucose Calcium Total Bilirubin AST ALT Alkaline Phosphatase Total Protein Albumin Globulin Albumin/Globulin Ratio Urine Color YELLOW Urine Clarity CLEAR Urine pH 6.0 Ur Specific [place] <=1.005 Urine Protein NEGATIVE Urine Glucose (UA) NEGATIVE Urine Ketones NEGATIVE Urine Occult Blood TRACE-INTA Urine Nitrite NEGATIVE Urine Bilirubin NEGATIVE Urine Urobilinogen 0.2 (NORMAL) Ur Leukocyte Esterase NEGATIVE Urine RBC 0-5 Urine WBC 0-3 Ur Squamous Epith Cells FEW Squamous Urine Bacteria Rare Urine Culture Comments NOT INDICATED Urine Creatinine - Rads (name of study) CT ab/pel IVP Radiology: Prelim report reviewed (Impression: 1. No urinary tract masses, stones, or obstruction. 2 Very small bubble of air in the urinary bladder, presumably due to prior catheterization. 3 Very small amount of extraluminal air in the pelvis consistent with recent surgery.), EMP read indepedently, See rad report Procedures - Bedside sono Bedside sono by EMP: With use of bedside ultrasound both kidneys are imaged there is minimal hydronephrosis present bilaterally. The pelvis is imaged and the bladder is empty. PD MEDICAL DECISION MAKING - ED course Complexity details: reviewed results, re-evaluated patient, considered differential, d/w patient, d/w family, d/w groundwater consultant ED course: 44-year-old female status post surgery with severe pain is attended to by the surgeon Dr. Begum and CT scan of the abdomen pelvis reveals no evidence of obstruction or abnormality related to the patient's surgery. She is treated for pain more aggressively and has control of her pain. I did discuss with the patient control of her pain. Dr. Begum managed this patients care nearly exclusively. Departure - Departure Disposition: 01 Home, Self Care Clinical Impression: Post-operative pain Condition: Stable Instructions: ED Post Op Pain Follow-Up: Shelley Ordoñez DO [Primary Care Provider] - MCSORLEY,ARTURO A, MD, PHD [Physician No Access] - Discharge Date/Time: 06/19/19 00:52
== END 2019-06-19 00:52 | disposition home or self-care (01) ==
LOC: ED 21:30
DX: G89.18 Other acute postprocedural pain (principal); R10.32 Left lower quadrant pain
CPT/HCPCS: 36415; 74178; 80053; 81001; 82570; 85027; 96365; 96375; 99282; 99284; Q9967; 87086

== ENCOUNTER 2019-06-25 11:25 | Outpatient (CLI) | payer OTHER ==
[2019-06-25 11:51] LABS: BASOPHILS % (AUTO) 0.6 %; EOSINOPHILS # (AUTO) 0.2 10^3/uL (0.0-0.7); EOSINOPHILS % (AUTO) 3.3 %; HGB - HEMOGLOBIN 12.8 g/dL (12.0-16.0); LYMPHOCYTES # (AUTO) 1.5 10^3/uL (1.5-3.5); LYMPHOCYTES % (AUTO) 22.1 %; MEAN CORPUSCULAR HEMOGLOBIN 29.4 pg (27.0-31.0); MEAN CORPUSCULAR HGB CONC 31.8 g/dL (32.0-36.0); MEAN CORPUSCULAR VOLUME 92.2 fL (81.0-99.0); MEAN PLATELET VOLUME 9.5 fL (7.9-10.8); MONOCYTES # (AUTO) 0.5 10^3/uL (0.0-1.0); MONOCYTES % (AUTO) 6.9 %; NEUTROPHILS # (AUTO) 4.4 10^3/uL (1.5-6.6); NEUTROPHILS % (AUTO) 66.1 %; PLT - PLATELET COUNT 300 10^3/uL (130-450); RED BLOOD COUNT 4.36 10^6/uL (4.20-5.40); RED CELL DISTRIBUTION WIDTH 11.4 % (12.0-15.0); WHITE BLOOD COUNT 6.7 x10^3/uL (4.8-10.8)
== END 2019-06-25 11:26 | disposition home or self-care (01) ==
LOC: LAB 11:25
PROVIDERS: ATTEND Obstetrics & Gynecology
DX: Z98.890 Other specified postprocedural states (principal)
CPT/HCPCS: 36415; 85025

== ENCOUNTER 2019-10-28 08:00 | Outpatient (CLI) | payer OTHER ==
[2019-10-28 21:07] LABS: CANDIDA GROUP DNA NEGATIVE (NEGATIVE); CANDIDA KRUSEI DNA NEGATIVE (NEGATIVE); TRICHOMONAS VAGINALIS DNA NEGATIVE (NEGATIVE)
== END 2019-10-28 23:59 | disposition home or self-care (01) ==
LOC: LAB.R 08:00
PROVIDERS: ATTEND Obstetrics & Gynecology
DX: N76.0 Acute vaginitis (principal)
CPT/HCPCS: 87661; 87801

== ENCOUNTER 2019-12-06 21:41 | Emergency (ER) | payer OTHER ==
--- NOTE | 2019-12-06 21:48 | ED Physician Documentation ---
History of Present Illness - Stated complaint Stated Complaint: SOA - ASTHMATIC - History obtained from History obtained from: Patient (the patient is a 44 y/o f w a cc of asthma and states that she has run out of her albuterol inhaler. she reports she typically is prescribed steroids when it gets to this point. denies any history of intubation or overnight hospitlizations. denies fevers or productive cough.) Review of Systems Constitutional: reports: Reviewed and negative Eyes: reports: Reviewed and negative Ears: reports: Reviewed and negative Nose: reports: Reviewed and negative Throat: reports: Reviewed and negative Cardiac: reports: Reviewed and negative Respiratory: reports: Wheezing GI: reports: Reviewed and negative : reports: Reviewed and negative Skin: reports: Reviewed and negative Musculoskeletal: reports: Reviewed and negative Neurologic: reports: Reviewed and negative Psychiatric: reports: Reviewed and negative Endocrine: reports: Reviewed and negative Immunocompromised: reports: Reviewed and negative PD PAST MEDICAL HISTORY - Past Medical History Cardiovascular: None Respiratory: None, Asthma Neuro: Migraines Endocrine/Autoimmune: None GI: Diverticulitis, Ulcerative colitis 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: Endometriosis : None HEENT: None Psych: Depression, Anxiety Musculoskeletal: Osteoarthritis, Fatigue, Chronic back pain Derm: None - Past Surgical History Past Surgical History: Yes General: Colonoscopy /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: Endometrial ablation, Dilation and currettage, Hysterectomy, Oophrectomy, Other (H/O diagnostic laparoscopy) HEENT: Other - Present Medications Home Medications: Ambulatory Orders Medication Instructions Recorded Confirmed Cetirizine HCl [Zyrtec] 10 mg PO DAILY PRN 03/16/16 06/17/19 Albuterol Sulfate [Proair Hfa 1 - 2 puffs INH Q4H PRN 11/21/17 06/17/19 Inhaler] Amitriptyline [Elavil] 10 mg PO HS 11/21/17 06/17/19 Bupropion HCl [Wellbutrin Xl] 300 mg PO DAILY 11/21/17 06/17/19 Gabapentin 600 mg PO DAILY PM 11/21/17 06/18/19 Fluticasone [Flonase] 1 sprays JA BID PRN 04/18/19 06/18/19 Montelukast [Singulair] 10 mg PO QPM 04/18/19 06/18/19 Multivitamin [Multiple Vitamins] 1 each PO DAILY 04/18/19 06/18/19 Ondansetron Odt [Zofran] 4 mg PO Q6H PRN 04/18/19 06/18/19 SUMAtriptan succinate [Sumatriptan 50 mg PO ONCE PRN MDD 2 tabs 04/18/19 06/18/19 Succinate] Omeprazole 20 mg PO DAILY 06/14/19 06/18/19 Albuterol Sulfate [Albuterol 18 gm IH Q6HR PRN #1 hfa.aer.ad 12/06/19 Sulfate Hfa] predniSONE [Prednisone] 50 mg PO DAILY #5 tablet 12/06/19 - Allergies Allergies/Adverse Reactions: Allergies Allergy/AdvReac Type Severity Reaction Status Date / Time chlorhexidine Allergy Rash Verified 12/06/19 21:44 - Social History Does the pt smoke?: No Smoking Status: Never smoker Does the pt drink ETOH?: No Does the pt have substance abuse?: No - Immunizations Immunizations are current?: Yes - POLST Patient has POLST: No PD ED PE NORMAL - Vitals Vital signs reviewed: Yes - General General: Alert and oriented X 3, No acute distress, Well developed/nourished - HEENT HEENT: PERRL - Neck Neck: Supple, no meningeal sign - Cardiac Cardiac: RRR, No murmur, Strong equal pulses - Respiratory Respiratory: No respiratory distress, Other (no use of accessory muscles, trachea midline, minimal wheezing in right middle lung lopez. ) - Abdomen Abdomen: Normal bowel sounds, Soft, Non tender, Non distended, No organomegaly - Derm Derm: Warm and dry - Extremities Extremities: No deformity - Neuro Neuro: Alert and oriented X 3 - Psych Psych: Normal mood, Normal affect Results - Vitals Vitals: Vital Signs - 24 hr 12/06/19 21:44 Temperature 36.5 C Heart Rate 90 Respiratory 16 Rate Blood Pressure 147/100 H O2 Saturation 98 Oxygen O2 Source Room air PD MEDICAL DECISION MAKING - ED course Complexity details: reviewed results, re-evaluated patient, considered differential (mild asthma exacerbation.), d/w patient, d/w family Departure - Departure Disposition: 01 Home, Self Care Clinical Impression: Asthma Qualifiers: Asthma severity: mild Asthma persistence: intermittent Asthma complication type: unspecified Qualified Code(s): J45.20 - Mild intermittent asthma, uncomplicated Condition: Stable Instructions: ED Reactive Airway Disease Follow-Up: Shelley Ordoñez DO [Primary Care Provider] - Tomorrow Prescriptions: Albuterol Sulfate [Albuterol Sulfate Hfa] 18 gm IH Q6HR PRN #1 hfa.aer.ad PRN Reason: Wheezing predniSONE [Prednisone] 50 mg PO DAILY #5 tablet Comments: follow up with your primary care provider tomorrow.
[2019-12-06] MEDS ORDERED: predniSONE 20 MG TABLET PO STA (22:02)
[2019-12-06] MEDS ORDERED: ALBUTEROL 1 PUFF INH STA (22:03)
[2019-12-06 22:33] VITALS: BP 140/90
== END 2019-12-06 22:33 | disposition home or self-care (01) ==
LOC: ED 21:41
DX: J45.20 Mild intermittent asthma, uncomplicated (principal)
CPT/HCPCS: 94640; 94664; 99283; J7512

== ENCOUNTER 2020-03-18 10:52 | Outpatient (CLI) | payer OTHER ==
[2020-03-18 18:38] LABS: BASOPHILS # (AUTO) 0.1 10^3/uL (0.0-0.1); BASOPHILS % (AUTO) 0.7 %; EOSINOPHILS # (AUTO) 0.2 10^3/uL (0.0-0.7); HGB - HEMOGLOBIN 12.7 g/dL (12.0-16.0); LYMPHOCYTES # (AUTO) 2.1 10^3/uL (1.5-3.5); LYMPHOCYTES % (AUTO) 30.3 %; MEAN CORPUSCULAR HEMOGLOBIN 29.8 pg (27.0-31.0); MEAN CORPUSCULAR HGB CONC 30.8 g/dL (32.0-36.0); MEAN CORPUSCULAR VOLUME 96.7 fL (81.0-99.0); MEAN PLATELET VOLUME 10.4 fL (7.9-10.8); MONOCYTES # (AUTO) 0.4 10^3/uL (0.0-1.0); MONOCYTES % (AUTO) 5.7 %; NEUTROPHILS # (AUTO) 4.2 10^3/uL (1.5-6.6); NEUTROPHILS % (AUTO) 59.9 %; PLT - PLATELET COUNT 309 10^3/uL (130-450); RED BLOOD COUNT 4.26 10^6/uL (4.20-5.40); RED CELL DISTRIBUTION WIDTH 12.1 % (12.0-15.0); WHITE BLOOD COUNT 7.1 x10^3/uL (4.8-10.8)
[2020-03-18 18:59] LABS: ALBUMIN 3.3 g/dL (3.2-5.5); ALBUMIN/GLOBULIN RATIO 1.1 (1.0-2.2); BILIRUBIN,TOTAL 0.8 mg/dL (0.2-1.0); CALCIUM 8.7 mg/dL (8.5-10.3); CREATININE 0.8 mg/dL (0.4-1.0); TOTAL PROTEIN 6.4 g/dL (6.7-8.2)
[2020-03-18 19:42] LABS: FOLLICLE STIMULATING HORMONE 0.34 mIU/mL
[2020-03-18 19:43] LABS: LUTEINIZING HORMONE < 0.20 mIU/mL
== END 2020-03-18 23:59 | disposition home or self-care (01) ==
LOC: LAB.WCP 10:52
PROVIDERS: ATTEND Family Medicine
DX: R53.83 Other fatigue (principal); N95.1 Menopausal and female climacteric states; R63.1 Polydipsia
CPT/HCPCS: 36415; 80050; 82670; 83001; 83002; 83036

== ENCOUNTER 2020-04-08 08:00 | Outpatient (CLI) | payer OTHER | END 2020-04-08 23:59 | disposition home or self-care (01) | LOC: LAB.R 08:00 | PROVIDERS: ATTEND Family Medicine | DX: R05 Cough (principal); Z20.828 Contact with and (suspected) exposure to other viral communicable diseases ==

== ENCOUNTER 2020-04-15 01:02 | Emergency (ER) | payer OTHER ==
--- NOTE | 2020-04-15 01:29 | ED Physician Documentation ---
PD HPI DYSPNEA - Stated complaint Stated Complaint: SOA-ASTHMATIC - Chief complaint Chief Complaint: Resp - History obtained from History obtained from: Patient - History of Present Illness Timing - onset: How many weeks ago (2) Timing - onset during: Light activity Timing - duration: Weeks (2) Timing - details: Gradual onset (onset cough and wheezing couple weeks ago, improved moderately with inhaler/nebulizer and then with Prednisone 40 mg daily for past week. However, cough increasing and with sputum now too. Albuterol not as effective.), Still present Inciting event(s): URI. No: Out of meds Improved by: Inhaler/neb. No: Steroids Worsened by: Exertion, Coughing Associated symptoms: Cough, Wheezing, Chest pain / discomfort (anteriorly with coughing). No: Fever, Hemoptysis, Bilateral edema Similar symptoms before: Diagnosis (asthma in the past) Recently seen: Clinic (PMD a week ago; has f/u appt video tomorrow, but was feeling more dyspnea today/ this evening.) Review of Systems Constitutional: reports: Chills, Myalgias. denies: Fever Nose: reports: Rhinorrhea / runny nose, Congestion. denies: Sinus pressure / pain Throat: denies: Sore throat Cardiac: reports: Chest pain / pressure (anterior with cough). 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: Endometriosis : None HEENT: None Psych: Depression, Anxiety Musculoskeletal: Osteoarthritis, Fatigue, Chronic back pain Derm: None - Past Surgical History Past Surgical History: Yes General: Colonoscopy /VIDEO OPERATOR: Endometrial ablation, Dilation and currettage, Hysterectomy, Oophrectomy, Other HEENT: Other - Present Medications Home Medications: Ambulatory Orders Medication Instructions Recorded Confirmed Cetirizine HCl [Zyrtec] 10 mg PO DAILY PRN 03/16/16 04/15/20 Albuterol Sulfate [Proair Hfa 1 - 2 puffs INH Q4H PRN 11/21/17 04/15/20 Inhaler] Amitriptyline [Elavil] 10 mg PO HS 11/21/17 04/15/20 Bupropion HCl [Wellbutrin Xl] 300 mg PO DAILY 11/21/17 04/15/20 Gabapentin 600 mg PO DAILY PM 11/21/17 04/15/20 Fluticasone [Flonase] 1 sprays JA BID PRN 04/18/19 04/15/20 Montelukast [Singulair] 10 mg PO QPM 04/18/19 04/15/20 Multivitamin [Multiple Vitamins] 1 each PO DAILY 04/18/19 04/15/20 Ondansetron Odt [Zofran] 4 mg PO Q6H PRN 04/18/19 06/18/19 SUMAtriptan succinate [Sumatriptan 50 mg PO ONCE PRN MDD 2 tabs 04/18/19 04/15/20 Succinate] Omeprazole 20 mg PO DAILY 06/14/19 04/15/20 Albuterol Sulfate [Albuterol 18 gm IH Q6HR PRN #1 hfa.aer.ad 12/06/19 04/15/20 Sulfate Hfa] predniSONE [Prednisone] 50 mg PO DAILY #5 tablet 12/06/19 04/15/20 Benzonatate [Tessalon Perle] 100 mg PO TID PRN #30 capsule 04/15/20 Doxycycline Monohydrate 100 mg PO BID #14 tablet 04/15/20 Fluticasone [Flonase] 2 sprays JA DAILY #1 bottle 04/15/20 Ipratropium [Atrovent] 0.5 mg INH TID #30 neb 04/15/20 dexAMETHasone [Decadron] 4 mg PO DAILY #5 tablet 04/15/20 - Allergies Allergies/Adverse Reactions: Allergies Allergy/AdvReac Type Severity Reaction Status Date / Time chlorhexidine Allergy Rash Verified 04/15/20 01:11 - Social History Does the pt smoke?: No Smoking Status: Never smoker Does the pt drink ETOH?: No Does the pt have substance abuse?: No - Immunizations Immunizations are current?: Yes - POLST Patient has POLST: No PD ED PE NORMAL - Vitals Vital signs reviewed: Yes - General General: Alert and oriented X 3, No acute distress (able to talk sentences, but does appear slightly prolonged exp phase of breathing. Sats are good. ), Well developed/nourished - HEENT HEENT: Ears normal, Pharynx benign - Neck Neck: Supple, no meningeal sign - Cardiac Cardiac: RRR, No murmur - Respiratory Respiratory: No: Clear bilaterally (just mild exp wheezes. No coarse sounds. ) - Abdomen Abdomen: Soft, Non tender - Derm Derm: Normal color, Warm and dry - Extremities Extremities: No edema, No calf tenderness / cord - Neuro Neuro: Alert and oriented X 3, No motor deficit, Normal speech Results - Vitals Vitals: Vital Signs - 24 hr 04/15/20 04/15/20 04/15/20 01:08 01:11 02:42 Temperature 36.4 C L 36.4 C L 36.7 C Heart Rate 118 H 118 H 91 Respiratory 16 16 18 Rate Blood Pressure 136/90 H 136/90 H 132/80 H O2 Saturation 98 98 98 Oxygen O2 Source Room air - Rads (name of study) chest xray Radiology: Prelim report reviewed (no infiltrates nor acute process), See rad report PD MEDICAL DECISION MAKING - ED course Complexity details: reviewed results, re-evaluated patient (improved with Duoneb; I think she may have just saturated her beta receptors and will have better improvement with Atrovent as well. Does seem likely developing bronchitis now. ), considered differential, d/w patient Departure - Departure Disposition: 01 Home, Self Care Clinical Impression: Acute bronchitis Qualifiers: Bronchitis organism: unspecified organism Qualified Code(s): J20.9 - Acute bronchitis, unspecified Exacerbation of asthma Qualifiers: Asthma severity: mild Asthma persistence: intermittent Qualified Code(s): J45.21 - Mild intermittent asthma with (acute) exacerbation Condition: Stable Record reviewed to determine appropriate education?: Yes Instructions: ED Upper Resp Infec Abx Tx Follow-Up: Shelley Ordoñez DO [Primary Care Provider] - Prescriptions: Ipratropium [Atrovent] 0.5 mg INH TID #30 neb dexAMETHasone [Decadron] 4 mg PO DAILY #5 tablet Doxycycline Monohydrate 100 mg PO BID #14 tablet Fluticasone [Flonase] 2 sprays JA DAILY #1 bottle Benzonatate [Tessalon Perle] 100 mg PO TID PRN #30 capsule PRN Reason: Cough Comments: Your albuterol 4 times a day and can add the ipratropium to it several times a day as well. Your chest x-ray appears normal without any signs of pneumonia. Your symptoms however do sound like possible bacterial bronchitis so we can add doxycycline antibiotic. Also use Tessalon perles as needed for cough and changed to Decadron steroid 4 mg daily for 5 days. Fluticasone nasal spray in each nostril daily for the next few weeks as well. Recheck if not improved well over the next several days to a week. Discharge Date/Time: 04/15/20 02:48
[2020-04-15] MEDS ORDERED: IPRATROPIUM/ALBUTEROL 3 ML NEB INH STA (01:49)
[2020-04-15] MEDS ORDERED: BENZONATATE 100 MG CAPSULE PO STA (01:49)
[2020-04-15] MEDS ORDERED: DOXYCYCLINE 100 MG TABLET PO STA (01:49)
[2020-04-15 02:43] VITALS: BP 132/80
--- NOTE | 2020-04-15 08:14 | XRAY Report ---
PROCEDURE: Chest 2 View X-Ray INDICATIONS: dyspnea/ cough TECHNIQUE: 2 view(s) of the chest. COMPARISON: None. FINDINGS: Surgical changes and devices: None. Lungs and pleura: No pleural effusions or pneumothorax. Lungs are clear. Mediastinum: Mediastinal contours are normal. Heart size is normal. Bones and chest wall: No suspicious bony abnormalities. Soft tissues appear unremarkable. IMPRESSION: No acute cardiopulmonary disease process. Reviewed by: Tayler Resendiz MD, PhD on 04/15/2020 8:13 AM PDT Approved by: Tayler Resendiz MD, PhD on 04/15/2020 8:13 AM PDT Station ID: [id number]
== END 2020-04-15 02:48 | disposition home or self-care (01) ==
LOC: ED 01:02
DX: J45.21 Mild intermittent asthma with (acute) exacerbation (principal); J20.9 Acute bronchitis, unspecified
CPT/HCPCS: 71046; 99284; A9270

== ENCOUNTER 2020-05-28 08:00 | Outpatient (CLI) | payer OTHER ==
[2020-05-28 21:16] LABS: CANDIDA GROUP DNA NEGATIVE (NEGATIVE); CANDIDA KRUSEI DNA NEGATIVE (NEGATIVE); TRICHOMONAS VAGINALIS DNA NEGATIVE (NEGATIVE)
== END 2020-05-28 23:59 | disposition home or self-care (01) ==
LOC: LAB.R 08:00
PROVIDERS: ATTEND Obstetrics & Gynecology
DX: R39.89 Other symptoms and signs involving the genitourinary system (principal); N89.8 Other specified noninflammatory disorders of vagina
CPT/HCPCS: 87086; 87181; 87661; 87801

== ENCOUNTER 2020-06-09 19:45 | Emergency (ER) | payer OTHER ==
[2020-06-09] MEDS ORDERED: ONDANSETRON ODT 4 MG TABLET TL STA (20:00)
[2020-06-09] MEDS ORDERED: SODIUM CHLORIDE 0.9% 1,000 ML IV STA (21:30)
[2020-06-09] MEDS ORDERED: KETOROLAC 30 MG/ML VIAL IVP STA (21:30)
--- NOTE | 2020-06-09 22:34 | ED Physician Documentation ---
History of Present Illness - Stated complaint Stated Complaint: NAUSEA - Chief complaint Chief Complaint: Neuro - History obtained from History obtained from: Patient - Additonal information Additional information: Patient comes emergency department complaining of migraine headache with nausea for about the last 5 days. Patient states she had been doing really well and had not had grains for a 2-week stretch, which is longer than usual for her. Patient has a longstanding history of migraines, and has been on amitriptyline previously for these. She is now on Topamax and states that she has not really felt right since she has been on the Topamax. She states that it had controlled her migraines well at first, but now, it seems to make the symptoms drag out and take longer to get better. She states that she has not had any fevers or chills. No head injury. She states that overall, the symptoms feel very consistent with her prior migraines. Review of Systems Ten Systems: 10 systems reviewed and negative Constitutional: reports: Reviewed and negative Eyes: reports: Reviewed and negative Ears: reports: Reviewed and negative Nose: reports: Reviewed and negative Throat: reports: Reviewed and negative Cardiac: reports: Reviewed and negative Respiratory: reports: Reviewed and negative GI: reports: Nausea. denies: Abdominal Pain, Vomiting : reports: Reviewed and negative Skin: reports: Reviewed and negative Musculoskeletal: reports: Reviewed and negative Neurologic: reports: Headache. denies: Head injury Psychiatric: reports: Reviewed and negative Endocrine: reports: Reviewed and negative Immunocompromised: reports: Reviewed and negative PD PAST MEDICAL HISTORY - Past Medical History Past Medical History: Yes Cardiovascular: None Respiratory: Asthma Neuro: Migraines Endocrine/Autoimmune: None GI: Diverticulitis, Ulcerative colitis [employer]: Endometriosis : None HEENT: None Psych: Depression, Anxiety Musculoskeletal: Osteoarthritis, Fatigue, Chronic back pain Derm: None - Past Surgical History Past Surgical History: Yes General: Colonoscopy /[employer]: Endometrial ablation, Dilation and currettage, Hysterectomy, Oophrectomy, Other HEENT: Other - Present Medications Home Medications: Ambulatory Orders Medication Instructions Recorded Confirmed Cetirizine HCl [Zyrtec] 10 mg PO DAILY PRN 03/16/16 04/15/20 Albuterol Sulfate [Proair Hfa 1 - 2 puffs INH Q4H PRN 11/21/17 04/15/20 Inhaler] Bupropion HCl [Wellbutrin Xl] 300 mg PO DAILY 11/21/17 04/15/20 Gabapentin 600 mg PO DAILY PM 11/21/17 04/15/20 Fluticasone [Flonase] 1 sprays JA BID PRN 04/18/19 04/15/20 Montelukast [Singulair] 10 mg PO QPM 04/18/19 04/15/20 Multivitamin [Multiple Vitamins] 1 each PO DAILY 04/18/19 04/15/20 SUMAtriptan succinate [Sumatriptan 50 mg PO ONCE PRN MDD 2 tabs 04/18/19 04/15/20 Succinate] Ipratropium [Atrovent] 0.5 mg INH TID #30 neb 04/15/20 - Allergies Allergies/Adverse Reactions: Allergies Allergy/AdvReac Type Severity Reaction Status Date / Time chlorhexidine Allergy Mild Rash Verified 06/09/20 19:56 - Social History Does the pt smoke?: No Smoking Status: Never smoker Does the pt drink ETOH?: No Does the pt have substance abuse?: No - Immunizations Immunizations are current?: Yes - POLST Patient has POLST: No PD ED PE NORMAL - Vitals Vital signs reviewed: Yes - General General: Alert and oriented X 3, No acute distress - HEENT HEENT: Atraumatic, PERRL, EOMI, Moist mucous membranes - Neck Neck: Supple, no meningeal sign - Cardiac Cardiac: RRR, No murmur, Strong equal pulses - Respiratory Respiratory: No respiratory distress, Clear bilaterally - Abdomen Abdomen: Soft, Non tender, Non distended - Derm Derm: Normal color, Warm and dry, No rash - Extremities Extremities: No deformity, No edema - Neuro Neuro: Alert and oriented X 3 - Psych Psych: Normal mood, Normal affect Results - Vitals Vitals: Vital Signs - 24 hr 06/09/20 06/09/20 06/09/20 19:48 21:01 21:47 Temperature 36.4 C L Heart Rate 98 66 Respiratory 18 16 15 Rate Blood Pressure 132/90 H 119/75 O2 Saturation 100 100 06/09/20 06/09/20 06/09/20 22:03 22:16 22:42 Temperature Heart Rate 66 71 Respiratory 16 16 14 Rate Blood Pressure 102/59 L 106/66 O2 Saturation 100 100 Oxygen O2 Source Room air PD MEDICAL DECISION MAKING - ED course Complexity details: considered differential, d/w patient ED course: The patient was treated symptomatically in the emergency department with IV fluids and a dose of Toradol. She was found to be feeling much better after this. She is advised to go home, get rest, and to speak with her doctor about whether or not she needs to see a neurologist again. We have discussed the usual indications for return. Departure - Departure Disposition: Home, Self Care Clinical Impression: Migraine Qualifiers: Migraine type: without aura Status migrainosus presence: without status migrainosus Intractability: not intractable Qualified Code(s): G43.009 - Migraine without aura, not intractable, without status migrainosus Condition: Stable Instructions: ED Headache Migraine Discharge Date/Time: 06/09/20 23:05
[2020-06-09 22:43] VITALS: BP 106/66
== END 2020-06-09 23:05 | disposition home or self-care (01) ==
LOC: ED 19:45
DX: G43.009 Migraine without aura, not intractable, without status migrainosus (principal)
CPT/HCPCS: 96374; 99283; 99284; Q0162

== ENCOUNTER 2021-06-24 08:00 | Outpatient (CLI) | payer OTHER ==
[2021-06-24 18:41] LABS: BASOPHILS % (AUTO) 0.4 %; EOSINOPHILS # (AUTO) 0.1 10^3/uL (0.0-0.7); EOSINOPHILS % (AUTO) 0.9 %; LYMPHOCYTES # (AUTO) 1.9 10^3/uL (1.5-3.5); LYMPHOCYTES % (AUTO) 20.3 %; MEAN CORPUSCULAR HEMOGLOBIN 31.1 pg (27.0-31.0); MEAN CORPUSCULAR HGB CONC 33.3 g/dL (32.0-36.0); MEAN CORPUSCULAR VOLUME 93.4 fL (81.0-99.0); MEAN PLATELET VOLUME 10.6 fL (7.9-10.8); MONOCYTES # (AUTO) 0.4 10^3/uL (0.0-1.0); MONOCYTES % (AUTO) 4.6 %; NEUTROPHILS # (AUTO) 6.8 10^3/uL (1.5-6.6); NEUTROPHILS % (AUTO) 73.6 %; PLT - PLATELET COUNT 364 10^3/uL (130-450); RED BLOOD COUNT 4.82 10^6/uL (4.20-5.40); RED CELL DISTRIBUTION WIDTH 11.7 % (12.0-15.0); WHITE BLOOD COUNT 9.2 x10^3/uL (4.8-10.8)
[2021-06-24 18:59] LABS: ALBUMIN 3.7 g/dL (3.2-5.5); ALBUMIN/GLOBULIN RATIO 1.1 (1.0-2.2); BILIRUBIN,TOTAL 0.4 mg/dL (0.2-1.0); CALCIUM 9.3 mg/dL (8.5-10.3); CREATININE 0.8 mg/dL (0.4-1.0); POTASSIUM 4.5 mmol/L (3.5-5.0); TOTAL PROTEIN 7.2 g/dL (6.7-8.2)
[2021-06-24 19:11] LABS: THYROID STIMULATING HORMONE 2.21 uIU/mL (0.34-5.60)
[2021-06-24 19:38] LABS: FOLLICLE STIMULATING HORMONE 0.49 mIU/mL
== END 2021-06-24 23:59 | disposition home or self-care (01) ==
LOC: LAB.WCP 08:00
PROVIDERS: ATTEND Family Medicine
DX: N95.1 Menopausal and female climacteric states (principal)
CPT/HCPCS: 36415; 80050; 83001

== ENCOUNTER 2021-11-11 13:21 | Outpatient (CLI) | payer OTHER ==
--- NOTE | 2021-11-11 15:00 | XRAY Report ---
PROCEDURE: Cervical Spine 2 View INDICATIONS: NECK PAIN TECHNIQUE: 3 view(s) of the cervical spine were acquired. COMPARISON: None. FINDINGS: Bones: No fractures or dislocations to the T1 level. The lateral masses of C1 appear intact on the odontoid view. No suspicious bony lesions. Mild C5-C6 and C6-C7 fixation hardware noted in the right mandible. Degenerative disc changes. Soft tissues: No prevertebral soft tissue swelling. IMPRESSION: Mild C5-C6 and C6-7 C7 degenerative disc changes. No acute osseous lesion. If there is continued clinical concern for pathology, then MRI should be con sidered for further evaluation. Reviewed by: Tayler Resendiz MD, PhD on 11/11/2021 2:59 PM PDT Approved by: Tayler Resendiz MD, PhD on 11/11/2021 2:59 PM PDT Station ID: [id number]
--- NOTE | 2021-11-11 15:01 | XRAY Report ---
PROCEDURE: Lumbar Spine 2 View INDICATIONS: BACK PAIN TECHNIQUE: 3 views of the lumbar spine were acquired. COMPARISON: None. FINDINGS: Bones: 5 [id number] vertebrae are present. There is normal bony alignment. No vertebral body compression fractures. No suspicious bony lesions. Soft tissues: Overlying bowel gas pattern is normal. No suspicious soft tissue calcifications. IMPRESSION: No osseous lesion. If there is continued clinical concern for pathology, then MRI should be considere d for further evaluation. Reviewed by: Tayler Resendiz MD, PhD on 11/11/2021 3:00 PM PDT Approved by: Tayler Resendiz MD, PhD on 11/11/2021 3:00 PM PDT Station ID: [id number]
--- NOTE | 2021-11-11 15:02 | XRAY Report ---
PROCEDURE: Pelvis 1 View INDICATIONS: BACK PAIN, UNSPECIFIED TECHNIQUE: 1 view(s) of the pelvis acquired. COMPARISON: None. FINDINGS: Bones: No fractures or dislocations. No suspicious bony lesions. Soft tissues: Visualized bowel gas pattern is normal. No suspicious soft tissue calcifications. IMPRESSION: No osseous lesion. If symptoms and/or clinical concern for pathology persists, further a ssessment with advanced imaging (CT, MR, bone scan) should be considered. Reviewed by: Tayler Resendiz MD, PhD on 11/11/2021 3:01 PM PDT Approved by: Tayler Resendiz MD, PhD on 11/11/2021 3:01 PM PDT Station ID: [id number]
--- NOTE | 2021-11-11 15:04 | XRAY Report ---
PROCEDURE: Thoracic Spine 2 View INDICATIONS: BACK PAIN TECHNIQUE: 2 views of the thoracic spine were acquired. COMPARISON: None. FINDINGS: Bones: No fractures or dislocations. No suspicious bony lesions. 12 pairs of ribs are noted, and a ppear intact where visualized. Mild T8-T9 and T10-11 degenerative disc changes. Soft tissues: No paravertebral stripe thickening. IMPRESSION: Mild T8-T9 and T10-T11 degenerative disc disease. No fracture. No acute osseous lesion. If there is continued clinical concern for pathology, then MRI should be considered for further evaluation. Reviewed by: Tayler Resendiz MD, PhD on 11/11/2021 3:03 PM PDT Approved by: Tayler Resendiz MD, PhD on 11/11/2021 3:03 PM PDT Station ID: [id number]
== END 2021-11-11 13:22 | disposition home or self-care (01) ==
LOC: DI.N 13:21
PROVIDERS: ATTEND Internal Medicine Rheumatology
DX: M50.322 Other cervical disc degeneration at C5-C6 level (principal); M51.34 Other intervertebral disc degeneration, thoracic region